=== PATIENT | male | born 1930 | race Caucasian/White ===

== ENCOUNTER → 2016-05-12 | Outpatient (CLI) | payer MEDICARE ==
[2016-05-12 10:49] LABS: HEMATOCRIT 40.5 % (37.9-51.0); HEMOGLOBIN 13.6 g/dL (13.5-17.0); HGB HCT DIFFERENCE 0.3; MEAN CORPUSCULAR HEMOGLOBIN 30.8 pg (27.0-33.4); MEAN CORPUSCULAR HGB CONC 33.7 g/dL (32.0-36.0); MEAN CORPUSCULAR VOLUME 91 fl (80-97); RED BLOOD COUNT 4.43 10^6/uL (4.35-5.55); RED CELL DISTRIBUTION WIDTH 13.9 % (11.5-14.0); WHITE BLOOD COUNT 4.5 10^3/uL (4.0-10.5)
[2016-05-12 11:14] LABS: ALANINE AMINOTRANSFERASE 16 U/L (21-72); ALBUMIN 4.3 g/dL (3.5-5.0); ALKALINE PHOSPHATASE 98 U/L (38-126); ANION GAP 14 (5-19); ASPARTATE AMINO TRANSFERASE 17 U/L (17-59); BILIRUBIN,TOTAL 0.4 mg/dL (0.2-1.3); BLOOD UREA NITROGEN 31 mg/dL (7-20); CALCIUM 9.9 mg/dL (8.4-10.2); CARBON DIOXIDE 27 mmol/L (22-30); CHLORIDE 99 mmol/L (98-107); CHOLESTEROL 157.79 mg/dL (0-200); CREATININE RESULT 1.14 mg/dL (0.52-1.25); Direct HDL 35 mg/dL (>40); GLUCOSE 98 mg/dL (75-110); POTASSIUM 5.4 mmol/L (3.6-5.0); SODIUM 140.4 mmol/L (137-145); TOTAL PROTEIN 7.3 g/dL (6.3-8.2); TRIGLYCERIDES 170 mg/dL (<150)
[2016-05-12 11:26] LABS: DIRECT LDL 86 mg/dL (<100)
== END ==
LOC: OD 09:32
PROVIDERS: ATTEND Family Medicine
DX: R78.89 Finding of other specified substances, not normally found in blood (principal); R94.6 Abnormal results of thyroid function studies; E78.9 Disorder of lipoprotein metabolism, unspecified; E55.9 Vitamin D deficiency, unspecified
CPT/HCPCS: 36415; 80053; 80061; 82306; 84443; 85027

== ENCOUNTER → 2016-05-18 | Outpatient (CLI) | payer MEDICARE | LOC: OD 10:17 | PROVIDERS: ATTEND Family Medicine | DX: E87.5 Hyperkalemia (principal) | CPT/HCPCS: 36415; 84132 ==

== ENCOUNTER → 2016-07-25 | Outpatient (CLI) | payer MEDICARE | LOC: OD 10:13 | PROVIDERS: ATTEND Family Medicine | DX: E87.5 Hyperkalemia (principal) | CPT/HCPCS: 36415; 84132 ==

== ENCOUNTER → 2017-04-24 | Outpatient (CLI) | payer MEDICARE ==
[2017-04-24 11:16] LABS: HEMATOCRIT 38.1 % (37.9-51.0); HEMOGLOBIN 13.2 g/dL (13.5-17.0); HGB HCT DIFFERENCE 1.5; MEAN CORPUSCULAR HEMOGLOBIN 31.3 pg (27.0-33.4); MEAN CORPUSCULAR HGB CONC 34.7 g/dL (32.0-36.0); MEAN CORPUSCULAR VOLUME 90 fl (80-97); RED BLOOD COUNT 4.22 10^6/uL (4.35-5.55)
[2017-04-24 11:38] LABS: ALANINE AMINOTRANSFERASE 15 U/L (21-72); ALKALINE PHOSPHATASE 91 U/L (38-126); ANION GAP 14 (5-19); ASPARTATE AMINO TRANSFERASE 14 U/L (17-59); BILIRUBIN,DIRECT 0.2 mg/dL (0.0-0.4); BILIRUBIN,TOTAL 0.3 mg/dL (0.2-1.3); BLOOD UREA NITROGEN 20 mg/dL (7-20); CALCIUM 9.6 mg/dL (8.4-10.2); CARBON DIOXIDE 23 mmol/L (22-30); CHLORIDE 104 mmol/L (98-107); CHOLESTEROL 194.45 mg/dL (0-200); CREATININE RESULT 1.12 mg/dL (0.52-1.25); Direct HDL 39 mg/dL (>40); GLUCOSE 90 mg/dL (75-110); POTASSIUM 4.8 mmol/L (3.6-5.0); SODIUM 141.1 mmol/L (137-145); TRIGLYCERIDES 155 mg/dL (<150)
[2017-04-24 11:49] LABS: DIRECT LDL 115 mg/dL (<100)
== END ==
LOC: OD 09:53
PROVIDERS: ATTEND Family Medicine
DX: R78.89 Finding of other specified substances, not normally found in blood (principal); R94.6 Abnormal results of thyroid function studies; E78.9 Disorder of lipoprotein metabolism, unspecified; E55.9 Vitamin D deficiency, unspecified
CPT/HCPCS: 36415; 80053; 80061; 82306; 84443; 85027

== ENCOUNTER 2018-07-29 11:48 | Emergency (ER) | payer MEDICARE ==
[2018-07-29 13:03] LABS: ABSOLUTE LYMPHOCYTES (AUTO) 1.2 10^3/uL (0.5-4.7); ABSOLUTE MONOCYTES (AUTO) 0.4 10^3/uL (0.1-1.4); ABSOLUTE NEUT (AUTO) 3.1 10^3/uL (1.7-8.2); BASOPHILS % (AUTO) 0.3 % (0-2); EOSINOPHILS % (AUTO) 0.4 % (0-6); HEMATOCRIT 39.4 % (37.9-51.0); HEMOGLOBIN 13.6 g/dL (13.5-17.0); LYMPHOCYTES % (AUTO) 24.2 % (13-45); MEAN CORPUSCULAR HEMOGLOBIN 31.5 pg (27.0-33.4); MEAN CORPUSCULAR HGB CONC 34.5 g/dL (32.0-36.0); MEAN CORPUSCULAR VOLUME 91 fl (80-97); MONOCYTES % (AUTO) 9.2 % (3-13); PLATELET COUNT 168 10^3/uL (150-450); RED BLOOD COUNT 4.31 10^6/uL (4.35-5.55); RED CELL DISTRIBUTION WIDTH 14.6 % (11.5-14.0); SEGMENTED NEUTROPHILS % (AUTO) 65.9 % (42-78); TOTAL CELLS COUNTED % (AUTO) 100 %; WHITE BLOOD COUNT 4.8 10^3/uL (4.0-10.5)
[2018-07-29 13:28] LABS: ALANINE AMINOTRANSFERASE 10 U/L (21-72); ALKALINE PHOSPHATASE 88 U/L (38-126); ANION GAP 14 (5-19); ASPARTATE AMINO TRANSFERASE 16 U/L (17-59); BILIRUBIN,DIRECT 0.3 mg/dL (0.0-0.4); BILIRUBIN,TOTAL 0.5 mg/dL (0.2-1.3); BLOOD UREA NITROGEN 45 mg/dL (7-20); CALCIUM 10.2 mg/dL (8.4-10.2); CARBON DIOXIDE 24 mmol/L (22-30); CHLORIDE 99 mmol/L (98-107); GLUCOSE 107 mg/dL (75-110); POTASSIUM 5.3 mmol/L (3.6-5.0); SODIUM 137.1 mmol/L (137-145); TOTAL PROTEIN 7.6 g/dL (6.3-8.2)
--- NOTE | 2018-07-29 13:34 | RADIOLOGY REPORT (SQ) ---
EXAM DESCRIPTION: CHEST SINGLE VIEW COMPLETED DATE/TIME: 07/29/2018 1:25 pm REASON FOR STUDY: altered mental status COMPARISON: 06/03/2015 EXAM PARAMETERS: NUMBER OF VIEWS: One view. TECHNIQUE: Single frontal radiographic view of the chest acquired. RADIATION DOSE: NA LIMITATIONS: None. FINDINGS: LUNGS AND PLEURA: Unchanged right basilar atelectasis or scarring. No new airspace opacit y. MEDIASTINUM AND HILAR STRUCTURES: No masses. Contour normal. HEART AND VASCULAR STRUCTURES: Redemonstrated cardiomegaly with enlargement of the mediastinum, possi dulce due to aortic aneurysm. BONES: No acute findings. HARDWARE: None in the chest. OTHER: No other significant finding. IMPRESSION: 1. Unchanged right basilar atelectasis or scarring. No new airspace opacity. 2. Redemonstrated cardiomegaly with enlargement of the mediastinum, possibly due to aortic aneurysm, unchanged from prior. TECHNICAL DOCUMENTATION: JOB ID: [id number] [employer]- All Rights Reserved Reading location - IP/workstation name: [email or web address]
[2018-07-29 14:39] LABS: APPEARANCE,URINE SLIGHTLY-CLOUDY; COLOR,URINE YELLOW
[2018-07-29 14:40] LABS: BILIRUBIN,URINE NEGATIVE (NEGATIVE); GLUCOSE, URINE NEGATIVE (NEGATIVE); KETONES,URINE NEGATIVE (NEGATIVE); LEUKOCYTE ESTERASE,URINE MODERATE (NEGATIVE); NITRITE,URINE POSITIVE (NEGATIVE); PROTEIN,URINE NEGATIVE (NEGATIVE); URINE SPECIFIC GRAVITY 1.019; UROBILINOGEN,URINE NEGATIVE mg/dL (<2.0)
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
[2018-07-29] MEDS ORDERED: CEFTRIAXONE 1 GM/D5W RTU 1 GM/50 ML RTUPB IV ONE (15:15)
[2018-07-29 16:55] VITALS: BP 116/99
--- NOTE | 2018-07-29 21:27 | EKG REPORT ---
SEVERITY:- ABNORMAL ECG - SINUS TACHYCARDIA LEFT ANTERIOR FASCICULAR BLOCK : Confirmed by: Nel Feldman MD 29-Jul-2018 21:26:49
== END 2018-07-29 17:05 | disposition home or self-care (01) ==
LOC: ER 11:48
DX: N39.0 Urinary tract infection, site not specified (principal); R31.9 Hematuria, unspecified; R10.9 Unspecified abdominal pain; F03.90 Unspecified dementia, unspecified severity, without behavioral disturbance, psychotic disturbance, mood disturbance, and anxiety; I10 Essential (primary) hypertension; Z88.8 Allergy status to other drugs, medicaments and biological substances
CPT/HCPCS: 93005; 99284; 36415; 87086; 85025; 87088; 80053; 81001; 87186; 71045; 93010; J0696

== ENCOUNTER 2019-02-24 13:36 | Emergency (ER) | payer MEDICARE ==
[2019-02-24] MEDS ORDERED: NORMAL SALINE 1000 ML 1,000 ML IV ONE (14:06)
[2019-02-24 14:25] LABS: ABSOLUTE LYMPHOCYTES (AUTO) 1.7 10^3/uL (0.5-4.7); ABSOLUTE MONOCYTES (AUTO) 0.5 10^3/uL (0.1-1.4); ABSOLUTE NEUT (AUTO) 3.5 10^3/uL (1.7-8.2); BASOPHILS % (AUTO) 0.3 % (0-2); EOSINOPHILS % (AUTO) 0.5 % (0-6); HEMATOCRIT 33.6 % (37.9-51.0); HEMOGLOBIN 11.7 g/dL (13.5-17.0); LYMPHOCYTES % (AUTO) 29.6 % (13-45); MEAN CORPUSCULAR HEMOGLOBIN 32.2 pg (27.0-33.4); MEAN CORPUSCULAR HGB CONC 34.9 g/dL (32.0-36.0); MEAN CORPUSCULAR VOLUME 92 fl (80-97); MONOCYTES % (AUTO) 8.6 % (3-13); PLATELET COUNT 180 10^3/uL (150-450); RED BLOOD COUNT 3.64 10^6/uL (4.35-5.55); RED CELL DISTRIBUTION WIDTH 14.4 % (11.5-14.0); TOTAL CELLS COUNTED % (AUTO) 100 %; WHITE BLOOD COUNT 5.7 10^3/uL (4.0-10.5)
[2019-02-24 14:31] LABS: APPEARANCE,URINE SLIGHTLY-CLOUDY; BILIRUBIN,URINE NEGATIVE (NEGATIVE); COLOR,URINE YELLOW; GLUCOSE, URINE NEGATIVE (NEGATIVE); KETONES,URINE NEGATIVE (NEGATIVE); PROTEIN,URINE NEGATIVE (NEGATIVE); URINE SPECIFIC GRAVITY 1.012; UROBILINOGEN,URINE NEGATIVE mg/dL (<2.0)
--- NOTE | 2019-02-24 14:45 | RADIOLOGY REPORT (SQ) ---
EXAM DESCRIPTION: CHEST SINGLE VIEW COMPLETED DATE/TIME: 02/24/2019 2:34 pm REASON FOR STUDY: weak/cough COMPARISON: 07/29/2018. EXAM PARAMETERS: NUMBER OF VIEWS: One view. TECHNIQUE: Single frontal radiographic view of the chest acquired. RADIATION DOSE: NA LIMITATIONS: None. FINDINGS: LUNGS AND PLEURA: Retrocardiac left lower lobe airspace disease. MEDIASTINUM AND HILAR STRUCTURES: No masses. Contour normal. HEART AND VASCULAR STRUCTURES: Stable cardiomegaly. Ectatic cord dilated ascending thoracic aorta, u nchanged. BONES: No acute findings. HARDWARE: None in the chest. OTHER: No other significant finding. IMPRESSION: STABLE CARDIOMEGALY. LEFT LOWER LOBE ATELECTASIS VERSUS INFILTRATE. TECHNICAL DOCUMENTATION: JOB ID: [id number] [employer]- All Rights Reserved Reading location - IP/workstation name: [email or web address]
[2019-02-24 14:48] LABS: ALBUMIN 3.5 g/dL (3.5-5.0); ALKALINE PHOSPHATASE 89 U/L (38-126); ANION GAP 12 (5-19); ASPARTATE AMINO TRANSFERASE 15 U/L (17-59); BILIRUBIN,DIRECT 0.2 mg/dL (0.0-0.4); BILIRUBIN,TOTAL 0.3 mg/dL (0.2-1.3); BLOOD UREA NITROGEN 45 mg/dL (7-20); CALCIUM 10.1 mg/dL (8.4-10.2); CARBON DIOXIDE 27 mmol/L (22-30); CHLORIDE 95 mmol/L (98-107); GLUCOSE 105 mg/dL (75-110); POTASSIUM 4.7 mmol/L (3.6-5.0); TOTAL PROTEIN 7.9 g/dL (6.3-8.2)
[2019-02-24 15:53] LABS: INTERNATIONAL RATION (INR) 1.18; PROTHROMBIN TIME 15.1 SEC (11.4-15.4)
[2019-02-24 15:58] LABS: VENOUS BLOOD BASE EXCESS -1.7 mmol/L; VENOUS BLOOD PCO2 34.1 mmHg (35-63); VENOUS BLOOD PH 7.43 (7.30-7.42)
--- NOTE | 2019-02-24 16:34 | PDOC CONSULTATION ---
Consultation Consult Date: 02/24/19 Provider Consulted: JOSÉ LUIS VARELA Consult reason:: atrial fibrillation History of Present Illness Admission Date/PCP: JUANITO CARDONA MD Patient complains of: No complaints History of Present Illness: ELAINE PAYNE is a 88 year old male With the following active problems 1. Dementia [place] 2. Systemic hypertension 82-year-old male who has dementia and resides in a detention. Patient is unable to relate any history whatsoever. History is as related by the formal partner who is a retired nurse. History is somewhat limited. Patient does not have much in the way of complaints. Documentation suggest that there was a left flank pain and change in mental status. Reportedly patient was found to be in atrial fibrillation with rapid ventricular rate and was mildly hypotensive in route to the emergency room. This apparently responded to an intravenous dose of diltiazem which slowed down the rate with improvement in blood pressure. Since arrival to the hospital patient is converted to sinus rhythm. He appears to be his usual self. He is normotensive and his heart rate is also normal. He does not endorse any complaints specifically there is no reported chest pain or dyspnea. Telemetry shows sinus rhythm. Past Medical History Cardiac Medical History: Reports: Myocardial Infarction, Hypertension - lisinopril Denies: Coronary Artery Disease Pulmonary Medical History: Denies: Asthma, Bronchitis, Chronic Obstructive Pulmonary Disease (COPD), [place], Tuberculosis Neurological Medical History: Denies: Seizures GI Medical History: Denies: Hepatitis Musculoskeltal Medical History: Denies: Arthritis Psychiatric Medical History: Reports: Bipolar Disorder Hematology: Denies: Anemia, Sickle Cell Disease Past Surgical History Past Surgical History: Denies: Pacemaker Social History Smoking Status: Never Smoker Electronic Cigarette use?: No Frequency of Alcohol Use: None Hx Recreational Drug Use: No Hx Prescription Drug Abuse: No Family History Family History: Reviewed & Not Pertinent, Other - unavailable due to dementia Parental Family History Reviewed: No - Unable to obtain. Patient demented Children Family History Reviewed: NA Sibling(s) Family History Reviewed.: NA Medication/Allergy Home Medications: Levothyroxine Sodium [Synthroid] 25 mcg PO DAILY 06/03/15 Lisinopril 20 mg PO DAILY 06/03/15 Mirtazapine [Remeron] 15 mg PO HSP 06/03/15 Risperidone 2 ml PO DAILY 06/03/15 Cefdinir [Omnicef 300 mg Capsule] 1 cap PO BID #10 capsule 06/04/15 Lorazepam [Ativan 1 mg Tablet] 0.5 tab PO BID #0 06/04/15 Lorazepam [Ativan] 0.5 mg PO Q6 PRN #0 06/04/15 Cephalexin [Cephalexin 500 MG Tablet] 1 tab PO BID #14 tablet 07/29/18 Allergies/Adverse Reactions: haloperidol [From Haldol] Allergy (Verified 06/27/13 10:04) haloperidol lactate [From Haldol] Allergy (Verified 06/27/13 10:04) Review of Systems Constitutional: PRESENT: as per HPI Eyes: PRESENT: as per HPI Ears: PRESENT: as per HPI Nose, Mouth, and Throat: PRESENT: as per HPI Cardiovascular: PRESENT: as per HPI - Limited review of systems. Patient unable to relate much in terms of complaints. Apparently he was a bit altered in route to the emergency room. Now at baseline. No reported chest pain or dyspnea. Physical Exam Vital Signs: Temp Pulse Resp BP Pulse Ox 97.4 F 26 H 119/79 95 02/24/19 13:37 02/24/19 16:01 02/24/19 16:01 02/24/19 15:41 Intake & Output 02/23/19 02/24/19 02/25/19 06:59 06:59 06:59 Intake Total 1000 Balance 1000 Weight 81.647 kg General appearance: PRESENT: no acute distress, cooperative, well-nourished Head exam: PRESENT: atraumatic, normocephalic Eye exam: PRESENT: EOMI Mouth exam: PRESENT: moist Neck exam: PRESENT: full ROM Respiratory exam: PRESENT: symmetrical, unlabored Cardiovascular exam: PRESENT: +S1, +S2 Vascular exam: PRESENT: normal capillary refill GI/Abdominal exam: PRESENT: soft Musculoskeletal exam: PRESENT: ambulatory, normal inspection Neurological exam: PRESENT: awake, oriented to person, other - Nonpurposeful lipsmacking movements noted. Psychiatric exam: PRESENT: appropriate affect Results Laboratory Results: 02/24/19 14:10 02/24/19 14:10 02/24/19 02/24/19 02/24/19 14:10 14:10 14:10 WBC 5.7 RBC 3.64 L Hgb 11.7 L Hct 33.6 L MCV 92 MCH 32.2 MCHC 34.9 RDW 14.4 H Plt Count 180 Seg Neutrophils % 61.0 VBG pH VBG pCO2 VBG HCO3 VBG Base Excess Sodium 134.3 L Potassium 4.7 Chloride 95 L Carbon Dioxide 27 Anion Gap 12 BUN 45 H Creatinine 1.42 H Est GFR ( Amer) 57 L Glucose 105 Lactic Acid 1.4 Calcium 10.1 Total Bilirubin 0.3 AST 15 L Alkaline Phosphatase 89 Total Protein 7.9 Albumin 3.5 Urine Color Urine Appearance Urine pH Ur Specific Christopher Urine Protein Urine Glucose (UA) Urine Ketones Urine Blood Urine RBC (Auto) 02/24/19 02/24/19 14:10 15:15 WBC RBC Hgb Hct MCV MCH MCHC RDW Plt Count Seg Neutrophils % VBG pH 7.43 H VBG pCO2 34.1 L VBG HCO3 22.0 VBG Base Excess -1.7 Sodium Potassium Chloride Carbon Dioxide Anion Gap BUN Creatinine Est GFR ( Amer) Glucose Lactic Acid Calcium Total Bilirubin AST Alkaline Phosphatase Total Protein Albumin Urine Color YELLOW Urine Appearance SLIGHTLY-CLOUDY Urine pH 5.0 Ur Specific Christopher 1.012 Urine Protein NEGATIVE Urine Glucose (UA) NEGATIVE Urine Ketones NEGATIVE Urine Blood NEGATIVE Urine RBC (Auto) 1 02/24/19 14:10 Troponin I 0.039 EKG Comments: Twelve-lead EKG 02/24/2019 Atrial fibrillation 111 bpm, left anterior fascicular block. Telemetry presently shows sinus rhythm at 72 bpm. Impressions: Chest X-Ray 02/24/19 14:05 IMPRESSION: STABLE CARDIOMEGALY. LEFT LOWER LOBE ATELECTASIS VERSUS INFILTRATE. Assessment & Plan - Diagnosis (1) Atrial fibrillation Qualifiers: Atrial fibrillation type: paroxysmal Qualified Code(s): I48.0 - Paroxysmal atrial fibrillation Is this a current diagnosis for this admission?: Yes Plan: Likely paroxysmal atrial fibrillation No obvious infection trigger noted. Suspicious pulmonary opacity although no toxicity or signs of ongoing infection. Given advanced age and systemic hypertension patient is at increased risk for stroke. I did detailed discussion with the spouse regarding systemic anticoagulation to prevent stroke. Given overall poor functional capacity and less effective dementia family member is not much in support of pursuing systemic anticoagulation. I recommended low-dose beta-naye such as metoprolol succinate 25 mg once a day to be given in the evening. This will audibly suppress triggers for atrial fibrillation and also help blunt the ventricular rate should he go into atrial fibrillation. This will potentially offset likely hypotension should he develop atrial fibrillation. Given overall functional status I would not embark on a cardiac work-up. - Notes Notes: Based on advanced age and overall limited functional capacity and inability to attribute symptoms to atrial fibrillation rate control strategy is preferred. Metoprolol succinate 25 mg to be given in the evening to minimize hypotension. If blood pressure drop is observed arguably we should pick a lower dose such as metoprolol tartrate 12.5 mg twice daily or even once daily. Hopefully this will benefit the patient by suppressing triggers for atrial fibrillation. Based on family wishes we have chosen not to pursue systemic anticoagulation.
--- NOTE | 2019-02-24 16:38 | ER Document Report ---
ED Cardiac - General Chief Complaint: Irregular Pulse Stated Complaint: IRREGULAR HEART BEAT Time Seen by Provider: 02/24/19 13:46 Primary Care Provider: JUANITO CARDONA MD [Primary Care Provider] - Follow up as needed Mode of Arrival: Medic Information source: Patient TRAVEL OUTSIDE OF THE [place] IN LAST 30 DAYS: Yes - HPI Notes: Patient is brought in by ambulance secondary to some low blood pressure and irregular heart rhythm. The half-way states that when they were doing rounds this morning they noticed the patient having irregular heartbeat and diagnosed with atrial fibrillation. They also noticed that his blood pressure was low and called the ambulance. Ambulance states that the patient was found with initial blood pressure in the 70s. Heart rate was approximate 150. They did treat this with Cardizem and brought him to the hospital. Patient has dementia and cannot give any significant history. However patient has not recently had any known fevers vomiting diarrhea cough or congestion. is in the room and is very helpful with history. She states he has never had a regular heartbeat before and otherwise has been having no significant acute issues recently. She states today she noticed that he appeared weak during the episode of atrial fibrillation. She states now he appears back to normal. Symptoms were moderate. They were constant. They have now resolved. Nothing made them worse that is known. It did appear to get better after the Cardizem. There is no no radiation of the symptoms. No known shortness of breath. - Related Data Allergies/Adverse Reactions: haloperidol [From Haldol] Allergy (Verified 06/27/13 10:04) haloperidol lactate [From Haldol] Allergy (Verified 06/27/13 10:04) Past Medical History - General Information source: Patient - Social History Smoking Status: Never Smoker Chew tobacco use (# tins/day): No Frequency of alcohol use: Occasional Drug Abuse: None Family History: Reviewed & Not Pertinent, Other - unavailable due to dementia Patient has suicidal ideation: No Patient has homicidal ideation: No - Past Medical History Cardiac Medical History: Reports: Hx Heart Attack, Hx Hypertension - lisinopril Denies: Hx Coronary Artery Disease Pulmonary Medical History: Denies: Hx Asthma, Hx Bronchitis, Hx COPD, Hx Pneumonia, Hx Tuberculosis Neurological Medical History: Denies: Hx Cerebrovascular Accident, Hx Seizures Renal/ Medical History: Denies: Hx Peritoneal Dialysis GI Medical History: Denies: Hx Hepatitis, Hx Ulcer Musculoskeletal Medical History: Denies Hx Arthritis Psychiatric Medical History: Reports: Hx Bipolar Disorder Infectious Medical History: Denies: Hx Hepatitis Past Surgical History: Denies: Hx Open Heart Surgery, Hx Pacemaker - Immunizations Hx Diphtheria, Pertussis, Tetanus Vaccination: Yes Review of Systems - Review of Systems -: Yes ROS unobtainable due to patient's medical condition - Review of symptoms is not obtainable due to patient's dementia Physical Exam - Vital signs Vitals: Temp Resp BP Pulse Ox 97.4 F 18 88/54 L 94 02/24/19 13:37 02/24/19 13:37 02/24/19 13:37 02/24/19 13:37 Interpretation: Hypotensive, Tachycardic - General General appearance: Appears well, Alert - HEENT Head: Normocephalic, Atraumatic Eyes: Normal Pupils: PERRL - Respiratory Respiratory status: No respiratory distress Chest status: Nontender Breath sounds: Normal Chest palpation: Normal - Cardiovascular Rhythm: Irregularly irregular Heart sounds: Normal auscultation Murmur: No - Abdominal Inspection: Normal Distension: No distension Bowel sounds: Normal Tenderness: Nontender Organomegaly: No organomegaly - Back Back: Normal, Nontender - Extremities General upper extremity: Normal inspection, Nontender, Normal color, Normal ROM, Normal temperature General lower extremity: Normal inspection, Nontender, Normal color, Normal ROM, Normal temperature, Normal weight bearing. No: Michael's sign - Neurological Orientation: Disoriented to time [place] Coma Scale Eye Opening: Spontaneous [place] Coma Scale Verbal: Confused [place] Coma Scale Motor: Obeys Commands [place] Coma Scale Total: 14 Speech: Normal Motor strength normal: LUE, RUE, LLE, RLE Sensory: Normal - Psychological Associated symptoms: Normal affect, Normal mood - Skin Skin Temperature: Warm Skin Moisture: Dry Skin Color: Normal Course - Re-evaluation Re-evalutation: 02/24/19 16:36 Patient was brought in for hypotension and new onset atrial fibrillation with rapid ventricular response. After dose of Cardizem patient's blood pressure on arrival was in the 90s systolic. His heart rate was proxy 110. He had no complaints or apparent symptoms. However patient is somewhat of a poor historian due to his dementia however he was smiling and pleasant and very interactive. While in the emergency department patient did spontaneously convert to a sinus rhythm with a blood pressure 125/81. He still has no s ignificant complaints or issues at this time. I did consult with Dr. Pena, the rim technician. He came and saw the patient in the emergency department. He discussed treatment with the family. They wish to not use anticoagulation at this time. They are okay with starting a low-dose beta-naye. In addition on x-ray patient has a questionable infiltrate, although I doubt it is infectious, I will treat with antibiotics in case it is an early infectious process. In discussion with Dr. Pena and family it was felt the patient would not benefit from further inpatient work-up given his age and chronic medical conditions. - Vital Signs Vital signs: Temp Pulse Resp BP Pulse Ox 97.4 F 26 H 119/79 95 02/24/19 13:37 02/24/19 16:01 02/24/19 16:01 02/24/19 15:41 - Laboratory Result Diagrams: 02/24/19 14:10 02/24/19 14:10 Laboratory results interpreted by me: 02/24/19 02/24/19 02/24/19 14:10 14:10 15:15 RBC 3.64 L Hgb 11.7 L Hct 33.6 L RDW 14.4 H VBG pH 7.43 H VBG pCO2 34.1 L Sodium 134.3 L Chloride 95 L BUN 45 H Creatinine 1.42 H Est GFR ( Amer) 57 L Est GFR (MDRD) Non-Af 47 L AST 15 L - Diagnostic Test Radiology reviewed: Image reviewed, Reports reviewed - EKG Interpretation by Me Rate: Tachycardia - 111 Rhythm: A.Fib Collins/QRS: LAHB/LAFB Critical Care Note - Critical Care Note Total time excluding time spent on procedures (mins): 50 Comments: Approximate 50 minutes of critical care time was spent on this patient. This included multiple reassessments. It included multiple discussions with consultants and family. It included review of labs and images. It included review of old records. Discharge - Discharge Clinical Impression: New onset atrial fibrillation Hypotension Qualifiers: Hypotension type: other hypotension type Qualified Code(s): I95.89 - Other hypotension Dementia Qualifiers: Dementia type: Alzheimer's disease Alzheimer's disease onset: late-onset Dementia behavioral disturbance: without behavioral disturbance Qualified Code(s): G30.1 - Alzheimer's disease with late onset; F02.80 - Dementia in other diseases classified elsewhere without behavioral disturbance Condition: Fair Disposition: HOME, SELF-CARE Instructions: Atrial Fibrillation ([facility]) Additional Instructions: Please call your family doctor as soon as possible to arrange for a reevaluation Prescriptions: Cefdinir 300 mg PO BID 7 Days #14 capsule Metoprolol Succinate [Toprol Xl 25 mg Tab.sr] 25 mg PO DAILY #30 tab.sr.24h Referrals: JUANITO CARDONA MD [Primary Care Provider] - Follow up as needed
[2019-02-24] MEDS ORDERED: METOPROLOL SUCCINATE 25 MG TAB.SR.24H PO ONE (16:47)
--- NOTE | 2019-02-24 16:56 | EKG REPORT ---
SEVERITY:- ABNORMAL ECG - ATRIAL FIBRILLATION, V-RATE [id number] LEFT ANTERIOR FASCICULAR BLOCK : Confirmed by: Nel Feldman MD 24-Feb-2019 16:55:50
[2019-02-24 17:11] VITALS: BP 124/81
== END 2019-02-24 17:13 | disposition home or self-care (01) ==
LOC: ER 13:36
DX: I48.91 Unspecified atrial fibrillation (principal); I95.9 Hypotension, unspecified; G30.9 Alzheimer's disease, unspecified; F02.80 Dementia in other diseases classified elsewhere, unspecified severity, without behavioral disturbance, psychotic disturbance, mood disturbance, and anxiety; I10 Essential (primary) hypertension; R00.0 Tachycardia, unspecified; I44.4 Left anterior fascicular block; I25.2 Old myocardial infarction; Z88.8 Allergy status to other drugs, medicaments and biological substances; Z95.1 Presence of aortocoronary bypass graft
CPT/HCPCS: 93005; 99291; 96360; 51702; 36415; 87040; 85025; 85610; 87077; 80053; 81001; 84484; 82803; 83605; 87150 ×26; 71045; 93010; J7030; A9270

== ENCOUNTER 2019-03-21 10:49 | Inpatient (IN) | payer MEDICARE ==
[2019-03-21] MEDS ORDERED: NORMAL SALINE 1000 ML 1,000 ML IV ONE (11:04)
--- NOTE | 2019-03-21 11:13 | ER Document Report ---
ED General - General Chief Complaint: S/S of Possible Stroke Stated Complaint: POSSIBLE STROKE Time Seen by Provider: 03/21/19 11:00 Primary Care Provider: JUANITO CARDONA MD [Primary Care Provider] - Follow up as needed TRAVEL OUTSIDE OF THE [place] IN LAST 30 DAYS: Yes - HPI Notes: 88-year-old male residential patient with history of dementia was getting his flu shot at the [facility] this morning when he suddenly seemed to have a staggering gait and appeared transiently confused. This lasted for about 15 minutes and it totally resolved by the time EMS arrived. EMS documented a blood sugar 105 and a systolic BP of 105 and did not observe any focal deficit. The patient is quiet and slow to respond at baseline per his caregivers and also has chronic involuntary movements of his mouth. He appears currently to be back at his baseline per his caretakers. Patient currently has no specific complaints here and denies pain and says he feels "okay". - Related Data Allergies/Adverse Reactions: haloperidol [From Haldol] Allergy (Verified 06/27/13 10:04) haloperidol lactate [From Haldol] Allergy (Verified 06/27/13 10:04) Past Medical History - General Information source: Patient Cannot obtain history due to: Dementia - Social History Smoking Status: Unknown if Ever Smoked Family History: Reviewed & Not Pertinent, Other - unavailable due to dementia - Past Medical History Cardiac Medical History: Reports: Hx Heart Attack, Hx Hypertension - lisinopril Denies: Hx Coronary Artery Disease Pulmonary Medical History: Denies: Hx Asthma, Hx Bronchitis, Hx COPD, Hx Pneumonia, Hx Tuberculosis Neurological Medical History: Denies: Hx Cerebrovascular Accident, Hx Seizures Renal/ Medical History: Denies: Hx Peritoneal Dialysis GI Medical History: Denies: Hx Hepatitis, Hx Ulcer Musculoskeletal Medical History: Denies Hx Arthritis Psychiatric Medical History: Reports: Hx Bipolar Disorder Infectious Medical History: Denies: Hx Hepatitis Past Surgical History: Denies: Hx Open Heart Surgery, Hx Pacemaker - Immunizations Hx Diphtheria, Pertussis, Tetanus Vaccination: Yes Review of Systems - Review of Systems Notes: Constitutional: Negative for fever. HENT: Negative for sore throat. Eyes: Negative for visual changes. Cardiovascular: Negative for chest pain. Respiratory: Negative for shortness of breath. Gastrointestinal: Negative for abdominal pain, vomiting or diarrhea. Genitourinary: Negative for dysuria. Musculoskeletal: Negative for back pain. Skin: Negative for rash. Neurological: Negative for headaches, weakness or numbness. 10 point ROS negative except as marked above and in HPI. Physical Exam - Vital signs Vitals: Temp 97.2 F 03/21/19 11:05 Notes: GENERAL: Elderly man with involuntary movements of face suggesting possible tardive dyskinesia appearing in no acute distress. SKIN: Decreased turgor and somewhat pale no rashes. HEAD: Normocephalic atraumatic. EYES: PERRLA. EOMI. Conjunctivae and sclerae clear. EARS: CANALS AND TMS CLEAR. NOSE: CLEAR. MOUTH: Tacky mucosa. Edentulous. No stridor or edema. No drooling. NECK: Supple. No masses or thyromegaly. No adenopathy. Carotids 2+ without bruits. No JVD. BACK: Symmetrical without tenderness. CHEST: Respirations unlabored. Breath sounds clear and symmetrical. HEART: Regular rhythm. No murmur gallop or rub. ABDOMEN: Soft nontender without masses, organomegaly or rebound. Bowel sounds normally active. No bruits. GENITALIA: Deferred. EXTREMITIES: Moderate degenerative changes in her phalangeal joints of both hands. No edema. No calf tenderness. Cap refill less than 2.0 seconds. Distal pulses are barely palpable all 4 extremities and symmetrical. NEUROLOGICAL: GCS 14. Patient is alert to person and place but not time. Speech is somewhat indistinct but baseline per caregivers and EMS crew.. Cranial nerves II through XII intact. Sensorimotor and cerebellar normal. Normal tone. Course - Re-evaluation Re-evalutation: 03/21/19 11:32 Mr. Chanel appears potentially septic I have drawn a lactate level and blood cultures and we are giving a 20 cc/kg normal saline IV bolus with [address] Replaced Covarrubias catheter and have a chest x-ray pending. Clinically I do not see an obvious source of sepsis. He is cool to touch and we are going to get a core temperature on him. In the meantime I am going go ahead and empirically treat him with a dose of vancomycin and Zosyn. - Vital Signs Vital signs: Temp Pulse Resp BP Pulse Ox 97.1 F 03/21/19 16:00 - Laboratory Result Diagrams: 03/21/19 11:10 03/21/19 14:50 Laboratory results interpreted by me: 03/21/19 03/21/19 03/21/19 11:10 11:10 14:50 WBC 3.5 L RBC 3.53 L Hgb 11.4 L Hct 33.2 L RDW 14.4 H Plt Count 121 L Carbonic Acid ABG pH ABG pCO2 ABG HCO3 ABG Total CO2 Potassium 5.3 H Carbon Dioxide 15 L Anion Gap 22 H BUN 85 H Creatinine 6.25 H Est GFR ( Amer) 10 L Est GFR (MDRD) Non-Af 9 L Lactic Acid 3.6 H Calcium 10.3 H AST 16 L Total Protein 8.4 H 03/21/19 16:45 WBC RBC Hgb Hct RDW Plt Count Carbonic Acid 1.01 L ABG pH 7.34 L ABG pCO2 33.7 L ABG HCO3 17.9 L ABG Total CO2 19.0 L Potassium Carbon Dioxide Anion Gap BUN Creatinine Est GFR ( Amer) Est GFR (MDRD) Non-Af Lactic Acid Calcium AST Total Protein Critical Care Note - Critical Care Note Total time excluding time spent on procedures (mins): 35 Comments: Sepsis protocol initiated and patient will receive empiric Zosyn and vancomycin for presumed sepsis of undetermined origin. Discharge - Discharge Clinical Impression: RACHELLE (acute kidney injury), Dehydration Pneumonia Qualifiers: Pneumonia type: due to unspecified organism Laterality: unspecified laterality Lung location: unspecified part of lung Qualified Code(s): J18.9 - Pneumonia, unspecified organism Disposition: ADMITTED INPATIENT Admitting Provider: Jarred (Hospitalist) Unit Admitted: IMCU Referrals: JUANITO CARDONA MD [Primary Care Provider] - Follow up as needed
[2019-03-21 11:25] LABS: ABSOLUTE LYMPHOCYTES (AUTO) 0.6 10^3/uL (0.5-4.7); ABSOLUTE MONOCYTES (AUTO) 0.2 10^3/uL (0.1-1.4); ABSOLUTE NEUT (AUTO) 2.6 10^3/uL (1.7-8.2); BASOPHILS % (AUTO) 0.6 % (0-2); HEMATOCRIT 33.2 % (37.9-51.0); HEMOGLOBIN 11.4 g/dL (13.5-17.0); LYMPHOCYTES % (AUTO) 17.8 % (13-45); MEAN CORPUSCULAR HEMOGLOBIN 32.3 pg (27.0-33.4); MEAN CORPUSCULAR HGB CONC 34.3 g/dL (32.0-36.0); MEAN CORPUSCULAR VOLUME 94 fl (80-97); MONOCYTES % (AUTO) 5.9 % (3-13); PLATELET COUNT 121 10^3/uL (150-450); RED BLOOD COUNT 3.53 10^6/uL (4.35-5.55); RED CELL DISTRIBUTION WIDTH 14.4 % (11.5-14.0); SEGMENTED NEUTROPHILS % (AUTO) 75.7 % (42-78); TOTAL CELLS COUNTED % (AUTO) 100 %; WHITE BLOOD COUNT 3.5 10^3/uL (4.0-10.5)
[2019-03-21] MEDS ORDERED: PIPERACILLIN/TAZOBACTAM 3.375 GM VIAL IV ONE (11:34)
--- NOTE | 2019-03-21 12:08 | RADIOLOGY REPORT (SQ) ---
EXAM DESCRIPTION: CHEST SINGLE VIEW COMPLETED DATE/TIME: 03/21/2019 11:56 am REASON FOR STUDY: hypotension COMPARISON: AP view of the chest from 02/24/2019 EXAM PARAMETERS: NUMBER OF VIEWS: One view. TECHNIQUE: Single frontal radiographic view of the chest acquired. RADIATION DOSE: NA LIMITATIONS: None. FINDINGS: LUNGS AND PLEURA: The costophrenic sulci are blunted there are strands of atelectasis in t he right base. The increased density in the left retrocardiac space could represent a combination of a hiatal hernia, atelectasis and the dilated thoracic aorta (refer to the CT from 04/20/2014), howev er a superimposed infection should be excluded based on clinical findings. MEDIASTINUM AND HILAR STRUCTURES: Stable mediastinal and hilar contours. HEART AND VASCULAR STRUCTURES: The cardiac silhouette is enlarged. The pulmonary vasculature is with in normal limits given the low inspiratory lung volumes. BONES: No acute findings. HARDWARE: None in the chest. OTHER: No other finding. IMPRESSION: Low inspiratory lung volumes, cardiomegaly and trace bilateral pleural effusions. As de scribed above, the increased density in the left retrocardiac space could represent a combination of the the hiatal hernia, atelectasis in the dilated thoracic aorta (refer to the CT from 04/20/2014, ho wever a superimposed infection should be excluded based on clinical findings. TECHNICAL DOCUMENTATION: JOB ID: [id number] [employer]- All Rights Reserved Reading location - IP/workstation name: [email or web address]
--- NOTE | 2019-03-21 12:19 | RADIOLOGY REPORT (SQ) ---
EXAM DESCRIPTION: CT HEAD WITHOUT COMPLETED DATE/TIME: 03/21/2019 12:03 pm REASON FOR STUDY: ams COMPARISON: 06/03/2015 TECHNIQUE: Axial images acquired through the brain without intravenous contrast. Images reviewed wi th bone, brain and subdural windows. Additional sagittal and coronal reconstructions were generated. Images stored on PACS. All CT scanners at this facility use dose modulation, iterative reconstruction, and/or weight based d osing when appropriate to reduce radiation dose to as low as reasonably achievable (ALARA). [facility]: Dose Right [facility]: CareDose [facility]: Dose Right [facility]: Teradose 4D [facility]: Smart Technologies RADIATION DOSE: CT Rad equipment meets quality standard of care and radiation dose reduction techniq ues were employed. CTDIvol: 53.2 mGy. DLP: 1017 mGy-cm. mGy. LIMITATIONS: None. FINDINGS: VENTRICLES: Prominent ventricles secondary to involutional atrophy. CEREBRUM: Cortical atrophy. No masses. No hemorrhage. No midline shift. No evidence for acute inf arction. Few scattered areas of low density in the white matter most likely chronic small vessel isch emic changes. CEREBELLUM: No masses. No hemorrhage. No alteration of density. No evidence for acute infarction. EXTRAAXIAL SPACES: No fluid collections. No masses. ORBITS AND GLOBE: No intra- or extraconal masses. Normal contour of globe without masses. CALVARIUM: No fracture. PARANASAL SINUSES: There is masslike opacification in the left sphenoid sinus. There are some calcif ications in this. SOFT TISSUES: No mass or hematoma. OTHER: No other significant finding. IMPRESSION: 1. Involutional changes with mild chronic microvascular ischemia. 2. Masslike opacification of the left sphenoid sinus. Possible mucocele. EVIDENCE OF ACUTE STROKE: NO. COMMENT: Quality ID # [id number]: Final reports with documentation of one or more dose reduction techniques (e.g., Automated exposure control, adjustment of the mA and/or kV according to patient size, use of iterative reconstruction technique) TECHNICAL DOCUMENTATION: JOB ID: [id number] [employer]- All Rights Reserved Reading location - IP/workstation name: [email or web address]
[2019-03-21 15:21] LABS: ALBUMIN 3.6 g/dL (3.5-5.0); ALKALINE PHOSPHATASE 60 U/L (38-126); ASPARTATE AMINO TRANSFERASE 16 U/L (17-59); BILIRUBIN,DIRECT 0.2 mg/dL (0.0-0.4); BILIRUBIN,TOTAL 0.5 mg/dL (0.2-1.3); BLOOD UREA NITROGEN 85 mg/dL (7-20); CALCIUM 10.3 mg/dL (8.4-10.2); GLUCOSE 104 mg/dL (75-110); POTASSIUM 5.3 mmol/L (3.6-5.0); TOTAL PROTEIN 8.4 g/dL (6.3-8.2)
[2019-03-21 15:26] LABS: CARBON DIOXIDE 15 mmol/L (22-30); CHLORIDE 106 mmol/L (98-107)
[2019-03-21 15:31] LABS: ANION GAP 22 (5-19)
[2019-03-21 16:55] LABS: ARTERIAL BLOOD BASE EXCESS -6.9 mmol/L; ARTERIAL BLOOD FIO2 ROOM AIR; ARTERIAL BLOOD H2CO3 1.01 mmol/L (1.05-1.35); ARTERIAL BLOOD HCO3 17.9 mmol/L (20-24); ARTERIAL BLOOD O2 SATURATION 96.8 % (94-98); ARTERIAL BLOOD PCO2 33.7 mmHg (35-45); ARTERIAL BLOOD PH 7.34 (7.35-7.45); ARTERIAL BLOOD PO2 92.9 mmHg (80-100)
[2019-03-21] MEDS ORDERED: DEXTROSE 5%-WATER 250 ML with NOREPINEPHRINE BITARTRATE 4 MG IV PRN ×2 (16:58)
[2019-03-21] MEDS ORDERED: NOREPINEPHRINE BITARTRATE INJ/PF 4 MG/4 ML SDV IV ONE (17:04)
[2019-03-21] MEDS ORDERED: ALBUMIN HUMAN 12.5 GM/50 ML RTUINJ IV ONE (17:54)
[2019-03-21] MEDS ORDERED: ACETAMINOPHEN 325 MG TABLET PO PRN (18:45)
[2019-03-21] MEDS ORDERED: MAG HYDROX/AL HYDROX/SIMETH SUSP 30 ML UDCUP PO PRN (18:45)
[2019-03-21] MEDS ORDERED: VANCOMYCIN HCL 0 MG in DEXTROSE 5%-WATER 250 ML IV NR (18:45)
[2019-03-21] MEDS ORDERED: ONDANSETRON HCL INJ/PF 4 MG/2 ML SDV IV PRN (18:45)
--- NOTE | 2019-03-21 18:56 | PDOC H&P ---
History of Present Illness Admission Date/PCP: JUANITO CARDONA MD History of Present Illness: ELAINE PAYNE is a 88 year old male past medical history of dementia, resident [facility] brought to ED by EMS after being noted to have confusion, imbalance, hypotensive. As per son who was present at the bed unfortunately does not have much information into the past medical history of the patient stating that patient has refused to eat or drink for the last 4 to 5 days. As far as patient himself he is awake, follows commands, unfortunately due to his dementia and hearing loss does not provide much information. In ED he was noted to be very hypotensive, with RACHELLE and elevated lactic acid. Patient was started on volume resuscitation, started on IV antibiotics, ICU consulted for admission however they did not deemed him appropriate for ICU admission. Hospitalist consulted for admission. Patient is awake, alert, oriented to self in no apparent distress, seems very weak and emaciated, when asked about why he has not been eating he does not provide much information. He denies any fever, chills, nausea, vomiting, diarrhea, constipation or any urinary symptoms. Past Medical History Cardiac Medical History: Reports: Myocardial Infarction, Hypertension - lisinopril Denies: Coronary Artery Disease Pulmonary Medical History: Denies: Asthma, Bronchitis, Chronic Obstructive Pulmonary Disease (COPD), Pneumonia, Tuberculosis Neurological Medical History: Denies: Seizures GI Medical History: Denies: Hepatitis Musculoskeltal Medical History: Denies: Arthritis Psychiatric Medical History: Reports: Bipolar Disorder Hematology: Denies: Anemia, Sickle Cell Disease Past Surgical History Past Surgical History: Denies: Pacemaker Social History Smoking Status: Unknown if Ever Smoked Frequency of Alcohol Use: None Hx Recreational Drug Use: No Hx Prescription Drug Abuse: No Family History Family History: Reviewed & Not Pertinent, Other - unavailable due to dementia Parental Family History Reviewed: Yes Children Family History Reviewed: Yes Sibling(s) Family History Reviewed.: Yes Medication/Allergy Home Medications: Levothyroxine Sodium [Synthroid] 25 mcg PO DAILY 06/03/15 Lisinopril 20 mg PO DAILY 06/03/15 Mirtazapine [Remeron] 15 mg PO HSP 06/03/15 Risperidone 2 ml PO DAILY 06/03/15 Cefdinir [Omnicef 300 mg Capsule] 1 cap PO BID #10 capsule 06/04/15 Lorazepam [Ativan 1 mg Tablet] 0.5 tab PO BID #0 06/04/15 Lorazepam [Ativan] 0.5 mg PO Q6 PRN #0 06/04/15 Cephalexin [Cephalexin 500 MG Tablet] 1 tab PO BID #14 tablet 07/29/18 Cefdinir 300 mg PO BID 7 Days #14 capsule 02/24/19 Metoprolol Succinate [Toprol Xl 25 mg Tab.sr] 25 mg PO DAILY #30 tab.sr.24h 02/24/19 Allergies/Adverse Reactions: haloperidol [From Haldol] Allergy (Verified 06/27/13 10:04) haloperidol lactate [From Haldol] Allergy (Verified 06/27/13 10:04) Review of Systems Review of Systems: hpi Physical Exam Vital Signs: Temp Pulse Resp BP Pulse Ox 97.1 F 03/21/19 16:00 Intake & Output 03/20/19 03/21/19 03/22/19 06:59 06:59 06:59 Intake Total 1023 Balance 1023 Weight 77.9 kg General appearance: PRESENT: no acute distress, thin, other - Pale and weak. Head exam: PRESENT: atraumatic, normocephalic Respiratory exam: PRESENT: clear to auscultation andrea. ABSENT: rales, rhonchi, wheezes Cardiovascular exam: PRESENT: RRR. ABSENT: diastolic murmur, rubs, systolic murmur Pulses: PRESENT: normal dorsalis pedis pul GI/Abdominal exam: PRESENT: normal bowel sounds, soft. ABSENT: distended, guarding, mass, organolmegaly, rebound, tenderness Neurological exam: PRESENT: alert, awake, oriented to person, CN II-XII grossly intact Skin exam: PRESENT: dry Results Laboratory Results: 03/21/19 11:10 03/21/19 14:50 03/21/19 03/21/19 03/21/19 11:10 11:10 11:10 WBC 3.5 L RBC 3.53 L Hgb 11.4 L Hct 33.2 L MCV 94 MCH 32.3 MCHC 34.3 RDW 14.4 H Plt Count 121 L Seg Neutrophils % 75.7 Carbonic Acid HCO3/H2CO3 Ratio ABG pH ABG pCO2 ABG pO2 ABG HCO3 ABG O2 Saturation ABG Base Excess FiO2 Sodium Cancelled Potassium Cancelled Chloride Cancelled Carbon Dioxide Cancelled Anion Gap Cancelled BUN Cancelled Creatinine Cancelled Est GFR ( Amer) Cancelled Est GFR (Non-Af Amer) Cancelled Glucose Cancelled Lactic Acid 3.6 H Calcium Cancelled Magnesium Cancelled Total Bilirubin Cancelled AST Cancelled Alkaline Phosphatase Cancelled Total Protein Cancelled Albumin Cancelled 03/21/19 03/21/19 03/21/19 12:09 14:50 15:34 WBC RBC Hgb Hct MCV MCH MCHC RDW Plt Count Seg Neutrophils % Carbonic Acid HCO3/H2CO3 Ratio ABG pH ABG pCO2 ABG pO2 ABG HCO3 ABG O2 Saturation ABG Base Excess FiO2 Sodium Cancelled 143.3 Potassium Cancelled 5.3 H Chloride Cancelled 106 Carbon Dioxide Cancelled 15 L Anion Gap Cancelled 22 H BUN Cancelled 85 H Creatinine Cancelled 6.25 H Est GFR ( Amer) Cancelled 10 L Est GFR (Non-Af Amer) Cancelled Glucose Cancelled 104 Lactic Acid 1.3 Calcium Cancelled 10.3 H Magnesium Cancelled 2.2 Total Bilirubin Cancelled 0.5 AST Cancelled 16 L Alkaline Phosphatase Cancelled 60 Total Protein Cancelled 8.4 H Albumin Cancelled 3.6 03/21/19 16:45 WBC RBC Hgb Hct MCV MCH MCHC RDW Plt Count Seg Neutrophils % Carbonic Acid 1.01 L HCO3/H2CO3 Ratio 17:1 ABG pH 7.34 L ABG pCO2 33.7 L ABG pO2 92.9 ABG HCO3 17.9 L ABG O2 Saturation 96.8 ABG Base Excess -6.9 FiO2 ROOM AIR Sodium Potassium Chloride Carbon Dioxide Anion Gap BUN Creatinine Est GFR ( Amer) Est GFR (Non-Af Amer) Glucose Lactic Acid Calcium Magnesium Total Bilirubin AST Alkaline Phosphatase Total Protein Albumin 03/21/19 03/21/19 11:10 15:34 Troponin I Cancelled 0.035 Impressions: Chest X-Ray 03/21/19 11:02 IMPRESSION: Low inspiratory lung volumes, cardiomegaly and trace bilateral pleural effusions. As described above, the increased density in the left retrocardiac space could represent a combination of the the hiatal hernia, atelectasis in the dilated thoracic aorta (refer to the CT from 04/20/2014, however a superimposed infection should be excluded based on clinical findings. Head CT 03/21/19 11:02 IMPRESSION: 1. Involutional changes with mild chronic microvascular ischemia. 2. Masslike opacification of the left sphenoid sinus. Possible mucocele. EVIDENCE OF ACUTE STROKE: NO. Assessment and Plan - Diagnosis (1) SIRS (systemic inflammatory response syndrome) Is this a current diagnosis for this admission?: Yes Plan: Due to underlying infectious process. Evidenced by fever, tachycardia, elevated lactic acid. Empiric IV antibiotics, cautious volume resuscitation guided by volume status. (2) Hyperkalemia Is this a current diagnosis for this admission?: Yes Plan: Due to RACHELLE. No acute EKG changes. Hyperkalemia protocol. (3) RACHELLE (acute kidney injury) Is this a current diagnosis for this admission?: Yes Plan: Likely due to too low p.o. intake. As per family patient has not been eating or drinking for the last 4 to 5 days. Cautious volume resuscitation guided by volume status, avoid nephrotoxic meds, strict in and out, nephrology consulted.
--- NOTE | 2019-03-21 19:03 | ADVANCED CARE ---
- Diagnosis (1) SIRS (systemic inflammatory response syndrome) Diagnosis Current: Yes (2) Hyperkalemia Diagnosis Current: Yes (3) RACHELLE (acute kidney injury) Diagnosis Current: Yes Resuscitation Status: Do Not Intubate Discussion: Patient has 2 kids, a son who is living in [place] and her daughter who is in [place]. Son who is accompanying patient does not know anything about a living will or patient's CODE STATUS. Patient's ex- Cindy was contacted who also said she does not remember if he has any living well POA. Patient himself is oriented to person and seems to comprehend some of my questions. When asked if he wants to be intubated he clearly says no. This was repeated by his son who also confirms that patient does not want to be intubated. Patient agrees with the plan. However when patient asked if he wants chest compressions he states he does. Patient's son was advised to talk to his family and and discuss patient's CODE STATUS when possible. Meanwhile patient agrees to have patient DNI at this point. Time Spent: 15
[2019-03-21] MEDS ORDERED: VANCOMYCIN HCL 1,500 MG in DEXTROSE 5%-WATER 250 ML IV ONE (20:30)
[2019-03-21] MEDS: NORMAL SALINE 1000 ML 1,000 ML IV PRN (20:57)
[2019-03-21] MEDS: SODIUM POLYSTYRENE SULFONATE 15 GM/60 ML PO SCH (21:13)
[2019-03-21] MEDS: HEPARIN SOD (PORCINE) 5,000 UNIT/ML 1 ML VIAL SUBCUT SCH (22:58)
[2019-03-21] MEDS: PIPERACILLIN SODIUM/TAZOBACTAM 2.25 GM in NORMAL SALINE 50 ML IV SCH (23:01)
[2019-03-22] MEDS ORDERED: DOPAMINE HCL/DEXTROSE 5%-WATER 800 MG/250 ML RTUINJ IV ONE (00:43)
[2019-03-22] MEDS ORDERED: DOPAMINE HCL 800 MG/D5W 250 ML IV PRN (01:10)
[2019-03-22] MEDS ORDERED: INFLUENZA QUAD (6MOS+) 2019-20 VAC 0.5 ML SYR IM ONE (01:13)
--- NOTE | 2019-03-22 03:27 | Progress Note ---
Provider Note Provider Note: Critical care note: 03/22/2019 Critical care start time: 01:06 Critical care issue: Hypotension, anuria I was asked by the patient's nurse to evaluate his persistent hypotension and anuria. On exam the patient's chest was found to be clear to auscultation. Heart showed a regular rate and rhythm without murmurs and there was no evidence of tachycardia or tachypnea. Patient's abdomen is soft bowel sounds were present but hypoactive. Extremities revealed no clubbing cyanosis or edema. Capillary refill time was 3-4 seconds. Patient's systolic blood pressures were noted to be in the high 70s to mid 80s with diastolic pressures in the high 40s to high 50s, MAP was in the 60-65 range. A brief discussion with patient and his family member who is in attendance. I also had a discussion with the patient's nurse and the floor nurse conditioning yard supervisor. The decision was made to try using renal dose dopamine per intravenous infusion in an effort to raise his blood pressure and better perfuse his kidneys. This endeavor was undertaken and I revisited the patient later to find his blood pressures in the high 80s to low 90s systolic, low 60s diastolic and MAPs in the range of 70. Patient had no urine output as yet but this will be observed on a continuous basis. The patient may well benefit from increased pressures would require transfer to the ICU in order to use an adjustable rate for any pressor agent. Continued surveillance of the patient's status is planned for the remainder of my shift. Critical care end time: 03:03 Total critical care time: 19 minutes
[2019-03-22 03:54] LABS: HEMATOCRIT 30.1 % (37.9-51.0); HEMOGLOBIN 10.2 g/dL (13.5-17.0); MEAN CORPUSCULAR HEMOGLOBIN 32.3 pg (27.0-33.4); MEAN CORPUSCULAR HGB CONC 33.9 g/dL (32.0-36.0); MEAN CORPUSCULAR VOLUME 95 fl (80-97); RED BLOOD COUNT 3.16 10^6/uL (4.35-5.55); RED CELL DISTRIBUTION WIDTH 14.7 % (11.5-14.0); WHITE BLOOD COUNT 4.1 10^3/uL (4.0-10.5)
[2019-03-22] MEDS ORDERED: MIRTAZAPINE 15 MG TABLET PO PRN ×2 (03:59→08:36)
[2019-03-22 04:21] LABS: PLATELET COUNT 96 10^3/uL (150-450)
[2019-03-22 04:24] LABS: ALBUMIN 3.6 g/dL (3.5-5.0); ALKALINE PHOSPHATASE 54 U/L (38-126); ASPARTATE AMINO TRANSFERASE 18 U/L (17-59); BILIRUBIN,DIRECT 0.3 mg/dL (0.0-0.4); BILIRUBIN,TOTAL 0.5 mg/dL (0.2-1.3); BLOOD UREA NITROGEN 89 mg/dL (7-20); CALCIUM 10.1 mg/dL (8.4-10.2); GLUCOSE 86 mg/dL (75-110); POTASSIUM 4.7 mmol/L (3.6-5.0); TOTAL PROTEIN 8.1 g/dL (6.3-8.2)
[2019-03-22 04:29] LABS: CARBON DIOXIDE 15 mmol/L (22-30); CHLORIDE 106 mmol/L (98-107)
[2019-03-22 04:46] LABS: ANION GAP 21 (5-19)
[2019-03-22 05:43] LABS: ABSOLUTE LYMPHOCYTES (AUTO) 1.1 10^3/uL (0.5-4.7); ABSOLUTE MONOCYTES (AUTO) 0.2 10^3/uL (0.1-1.4); ABSOLUTE NEUT (AUTO) 2.4 10^3/uL (1.7-8.2); BASOPHILS % (AUTO) 0.7 % (0-2); EOSINOPHILS % (AUTO) 0.1 % (0-6); HEMATOCRIT 29.4 % (37.9-51.0); HEMOGLOBIN 10.1 g/dL (13.5-17.0); LYMPHOCYTES % (AUTO) 29.2 % (13-45); MEAN CORPUSCULAR HEMOGLOBIN 32.5 pg (27.0-33.4); MEAN CORPUSCULAR HGB CONC 34.5 g/dL (32.0-36.0); MEAN CORPUSCULAR VOLUME 94 fl (80-97); MONOCYTES % (AUTO) 6.6 % (3-13); RED BLOOD COUNT 3.12 10^6/uL (4.35-5.55); RED CELL DISTRIBUTION WIDTH 14.9 % (11.5-14.0); SEGMENTED NEUTROPHILS % (AUTO) 63.4 % (42-78); TOTAL CELLS COUNTED % (AUTO) 100 %; WHITE BLOOD COUNT 3.8 10^3/uL (4.0-10.5)
[2019-03-22] MEDS: PIPERACILLIN SODIUM/TAZOBACTAM 2.25 GM in NORMAL SALINE 50 ML IV SCH ×3 (05:43→17:58)
[2019-03-22] MEDS: PANTOPRAZOLE SODIUM 40 MG TABLET.DR PO SCH ×2 (05:44→17:50)
[2019-03-22] MEDS: HEPARIN SOD (PORCINE) 5,000 UNIT/ML 1 ML VIAL SUBCUT SCH ×3 (05:45→22:50)
[2019-03-22] MEDS ORDERED: SODIUM BICARBONATE 8.4% INJ 50 MEQ/50 ML DISP.SYRIN ONE (05:48)
[2019-03-22] MEDS: SODIUM POLYSTYRENE SULFONATE 15 GM/60 ML PO SCH ×2 (05:50→17:36)
[2019-03-22] MEDS ORDERED: SODIUM BICARBONATE 8.4% INJ 50 MEQ/50 ML DISP.SYRIN IV ONE (05:50)
[2019-03-22] MEDS ORDERED: LEVOTHYROXINE SODIUM 0.025 MG TABLET PO SCH (06:00)
[2019-03-22 06:01] LABS: ALBUMIN 3.5 g/dL (3.5-5.0); BLOOD UREA NITROGEN 88 mg/dL (7-20); CALCIUM 10.1 mg/dL (8.4-10.2); GLUCOSE 89 mg/dL (75-110); PHOSPHORUS 7.4 mg/dL (2.5-4.5); POTASSIUM 4.7 mmol/L (3.6-5.0)
[2019-03-22 06:06] LABS: CARBON DIOXIDE 14 mmol/L (22-30); CHLORIDE 109 mmol/L (98-107)
[2019-03-22 06:07] LABS: ANION GAP 21 (5-19)
[2019-03-22 06:11] LABS: PLATELET COUNT 87 10^3/uL (150-450)
--- NOTE | 2019-03-22 09:34 | PDOC CRITICAL CARE PROG REPORT ---
General Date:: 03/22/19 ICU Day:: 1 Ventilator Day:: 0 Hospital Day:: 2 Events in the past 12 to 24 Hours:: Transferred to ICU and placed on dopamine. Review of systems relevant to events:: Indicates he is hungry, willing to drink Pepsi according to son. Wants to get up. Reason for ICU Addmission:: Hypotension, Acute Kidney Injury, electrolyte abnormality. - Medications: Vasopressors:: Dopamine. Sedation:: None Physical Exam Vital Signs: Temp Pulse Resp BP Pulse Ox 98.0 F 75 21 H 77/52 L 92 03/22/19 08:00 03/22/19 08:00 03/22/19 08:15 03/22/19 08:15 03/22/19 08:14 Intake & Output 03/21/19 03/22/19 03/23/19 06:59 06:59 06:59 Intake Total 1523 28 Output Total 0 Balance 1523 28 Weight 80.9 kg Weight/Height Weight 80.9 kg Height 5 ft 6 in General appearance: PRESENT: no acute distress, well-developed, well-nourished Head exam: PRESENT: atraumatic, normocephalic Eye exam: PRESENT: conjunctiva pink, EOMI, PERRLA. ABSENT: scleral icterus Ear exam: PRESENT: normal external ear exam Mouth exam: PRESENT: other - Mouth not dry today. Respiratory exam: PRESENT: clear to auscultation andrea. ABSENT: rales, rhonchi, wheezes Cardiovascular exam: PRESENT: RRR. ABSENT: diastolic murmur, rubs, systolic murmur Vascular exam: PRESENT: normal capillary refill GI/Abdominal exam: PRESENT: normal bowel sounds, soft. ABSENT: distended, guarding, mass, organolmegaly, rebound, tenderness Rectal exam: PRESENT: deferred Gentrourinary exam: PRESENT: indwelling catheter, other - Covarrubias placed this AM Extremities exam: PRESENT: full ROM. ABSENT: calf tenderness, clubbing, pedal edema Musculoskeletal exam: PRESENT: normal inspection Neurological exam: PRESENT: alert, altered, awake Psychiatric exam: PRESENT: other - C/W dementia. Skin exam: PRESENT: dry, intact, warm. ABSENT: cyanosis, rash Laboratory/Radiographs Laboratory Results: 03/22/19 05:34 03/22/19 05:34 03/21/19 03/21/1919 11:10 11:10 11:10 WBC 3.5 L RBC 3.53 L Hgb 11.4 L Hct 33.2 L MCV 94 MCH 32.3 MCHC 34.3 RDW 14.4 H Plt Count 121 L Seg Neutrophils % 75.7 Carbonic Acid HCO3/H2CO3 Ratio ABG pH ABG pCO2 ABG pO2 ABG HCO3 ABG O2 Saturation ABG Base Excess FiO2 Sodium Cancelled Potassium Cancelled Chloride Cancelled Carbon Dioxide Cancelled Anion Gap Cancelled BUN Cancelled Creatinine Cancelled Est GFR ( Amer) Cancelled Est GFR (Non-Af Amer) Cancelled Glucose Cancelled Lactic Acid 3.6 H Calcium Cancelled Phosphorus Magnesium Cancelled Total Bilirubin Cancelled AST Cancelled Alkaline Phosphatase Cancelled Total Protein Cancelled Albumin Cancelled [facility] 03/21/19 03/21/19 03/21/19 12:09 14:50 15:34 WBC RBC Hgb Hct MCV MCH MCHC RDW Plt Count Seg Neutrophils % Carbonic Acid HCO3/H2CO3 Ratio ABG pH ABG pCO2 ABG pO2 ABG HCO3 ABG O2 Saturation ABG Base Excess FiO2 Sodium Cancelled 143.3 Potassium Cancelled 5.3 H Chloride Cancelled 106 Carbon Dioxide Cancelled 15 L Anion Gap Cancelled 22 H BUN Cancelled 85 H Creatinine Cancelled 6.25 H Est GFR ( Amer) Cancelled 10 L Est GFR (Non-Af Amer) Cancelled Glucose Cancelled 104 Lactic Acid 1.3 Calcium Cancelled 10.3 H Phosphorus Magnesium Cancelled 2.2 Total Bilirubin Cancelled 0.5 AST Cancelled 16 L Alkaline Phosphatase Cancelled 60 Total Protein Cancelled 8.4 H Albumin Cancelled 3.6 [facility] 03/21/19 03/21/19 03/22/19 16:45 23:24 03:04 WBC 4.1 RBC 3.16 L Hgb 10.2 L Hct 30.1 L MCV 95 MCH 32.3 MCHC 33.9 RDW 14.7 H Plt Count 96 L Seg Neutrophils % Carbonic Acid 1.01 L HCO3/H2CO3 Ratio 17:1 ABG pH 7.34 L ABG pCO2 33.7 L ABG pO2 92.9 ABG HCO3 17.9 L ABG O2 Saturation 96.8 ABG Base Excess -6.9 FiO2 ROOM AIR Sodium Potassium Chloride Carbon Dioxide Anion Gap BUN Creatinine Est GFR ( Amer) Est GFR (Non-Af Amer) Glucose Lactic Acid 1.6 Calcium Phosphorus Magnesium Total Bilirubin AST Alkaline Phosphatase Total Protein Albumin TSH 03/22/19 03/22/19 03/22/19 03:04 03:04 05:34 WBC 3.8 L RBC 3.12 L Hgb 10.1 L Hct 29.4 L MCV 94 MCH 32.5 MCHC 34.5 RDW 14.9 H Plt Count 87 L Seg Neutrophils % 63.4 Carbonic Acid HCO3/H2CO3 Ratio ABG pH ABG pCO2 ABG pO2 ABG HCO3 ABG O2 Saturation ABG Base Excess FiO2 Sodium 141.9 Potassium 4.7 Chloride 106 Carbon Dioxide 15 L Anion Gap 21 H BUN 89 H Creatinine 6.19 H Est GFR ( Amer) 10 L Est GFR (Non-Af Amer) Glucose 86 Lactic Acid Calcium 10.1 Phosphorus Magnesium 2.1 Total Bilirubin 0.5 AST 18 Alkaline Phosphatase 54 Total Protein 8.1 Albumin 3.6 TSH 1.15 03/22/19 03/22/19 05:34 05:34 WBC RBC Hgb Hct MCV MCH MCHC RDW Plt Count Seg Neutrophils % Carbonic Acid HCO3/H2CO3 Ratio ABG pH ABG pCO2 ABG pO2 ABG HCO3 ABG O2 Saturation ABG Base Excess FiO2 Sodium 143.6 Potassium 4.7 Chloride 109 H Carbon Dioxide 14 L Anion Gap 21 H BUN 88 H Creatinine 5.97 H Est GFR ( Amer) 11 L Est GFR (Non-Af Amer) Glucose 89 Lactic Acid Calcium 10.1 Cancelled Phosphorus 7.4 H Magnesium 2.0 Total Bilirubin AST Alkaline Phosphatase Total Protein Albumin 3.5 TSH 03/21/19 03/21/19 03/21/19 11:10 15:34 15:34 Troponin I Cancelled 0.035 Cancelled NT-Pro-B Natriuret Pep 1960 H 03/21/19 03/22/19 21:39 03:04 Troponin I 0.035 0.031 NT-Pro-B Natriuret Pep Impressions: Chest X-Ray 03/21/19 11:02 IMPRESSION: Low inspiratory lung volumes, cardiomegaly and trace bilateral pleural effusions. As described above, the increased density in the left retrocardiac space could represent a combination of the the hiatal hernia, atelectasis in the dilated thoracic aorta (refer to the CT from 04/20/2014, however a superimposed infection should be excluded based on clinical findings. Head CT 03/21/19 11:02 IMPRESSION: 1. Involutional changes with mild chronic microvascular ischemia. 2. Masslike opacification of the left sphenoid sinus. Possible mucocele. EVIDENCE OF ACUTE STROKE: NO. All labs, radiographs, diagnostic studies and EKGs were personally reviewed: Yes In addition, reports of radiographic and diagnostic studies were read: Yes Assessment and Plan - Diagnosis (1) RACHELLE (acute kidney injury) Is this a current diagnosis for this admission?: Yes Plan: Only slightly improved. Watch fluids as he is not producing much. Should improve but the need for dialysis is still present. GFR after hydration only 11. (2) Dehydration Is this a current diagnosis for this admission?: Yes Plan: Mouth not as dry. Making progress with dehydration not so much with kidney function (3) Dementia Qualifiers: Dementia type: Alzheimer's disease Alzheimer's disease onset: late-onset Dementia behavioral disturbance: without behavioral disturbance Qualified Code(s): G30.1 - Alzheimer's disease with late onset; F02.80 - Dementia in other diseases classified elsewhere without behavioral disturbance Is this a current diagnosis for this admission?: Yes Plan: This condition is often seen with dementia in a [place] [facility] situation. This may be recurrent and the beginning of an end of life spiral. (4) Hypotension Qualifiers: Hypotension type: other hypotension type Qualified Code(s): I95.89 - Other hypotension Is this a current diagnosis for this admission?: Yes Plan: Due at least partially to dehydration, checking cortisol. Plan Summary: Continue voume load, cortisol if needed, wean dopamine respond to kidney function as events unfold. Critical Time Critical Time (minutes): 35 Level of Care: ICU Anticipated discharge: SNF Within: Other -: 1. The care of a critical patient is a dynamic process. This note is a liability claims representative synopsis but static in nature. The timeframe for treatments given in order is not necessary the actual time these treatments may have been done. 2. This patient requires critical care secondary to ongoing requirements for therapy not offered or safe outside the critical care environment. Transfer to a lower level of care with altered life or limb morbidity and mortality. 3. Multidisciplinary rounds completed. 4. ABCDE bundle addressed.
[2019-03-22] MEDS ORDERED: LORAZEPAM 1 MG TABLET PO SCH (10:00)
[2019-03-22] MEDS: RISPERIDONE 1 MG TABLET PO SCH (11:13)
[2019-03-22] MEDS: DOCUSATE SODIUM 100 MG CAPSULE PO SCH ×2 (11:14→11:36)
[2019-03-22] MEDS: LORAZEPAM 0.5 MG TABLET PO SCH ×2 (11:14→17:50)
[2019-03-22] MEDS: HYDROCORTISONE SOD SUCCINATE INJ/PF 100 MG/2 ML SDV IV SCH ×2 (14:28→17:51)
[2019-03-22] MEDS: NORMAL SALINE 1000 ML 1,000 ML IV PRN (18:02)
[2019-03-22 18:31] LABS: AMORPHOUS SEDIMENT,URINE TRACE /HPF; APPEARANCE,URINE CLOUDY; BILIRUBIN,URINE NEGATIVE (NEGATIVE); COLOR,URINE YELLOW; GLUCOSE, URINE 50 mg/dL (NEGATIVE); KETONES,URINE NEGATIVE (NEGATIVE); LEUKOCYTE ESTERASE,URINE SMALL (NEGATIVE); NITRITE,URINE NEGATIVE (NEGATIVE); PROTEIN,URINE NEGATIVE (NEGATIVE); URINE SPECIFIC GRAVITY 1.011; UROBILINOGEN,URINE NEGATIVE mg/dL (<2.0)
[2019-03-23] MEDS: PIPERACILLIN SODIUM/TAZOBACTAM 2.25 GM in NORMAL SALINE 50 ML IV SCH ×2 (00:42→07:03)
[2019-03-23] MEDS: HYDROCORTISONE SOD SUCCINATE INJ/PF 100 MG/2 ML SDV IV SCH ×3 (04:29→17:03)
[2019-03-23] MEDS: HEPARIN SOD (PORCINE) 5,000 UNIT/ML 1 ML VIAL SUBCUT SCH ×3 (07:04→22:49)
[2019-03-23] MEDS: PANTOPRAZOLE SODIUM 40 MG TABLET.DR PO SCH (07:04)
[2019-03-23] MEDS: LEVOTHYROXINE SODIUM 0.025 MG TABLET PO SCH (07:05)
--- NOTE | 2019-03-23 08:58 | PDOC CRITICAL CARE PROG REPORT ---
General Date:: 03/23/19 ICU Day:: 3 Hospital Day:: 3 Events in the past 12 to 24 Hours:: Off pressors, on steroids. Stability from a CV standpoint Review of systems relevant to events:: Kidney function improving. Neuro status stable. At risk of delirium. weak. Reason for ICU Addmission:: Hypotension, Acute Kidney Injury, electrolyte abnormality. - Medications: Medications reviewed and adjusted accordingly: Yes Vasopressors:: None since yesterday. Sedation:: None Physical Exam Vital Signs: Temp Pulse Resp BP Pulse Ox 97.5 F 74 24 H 130/83 H 99 03/23/19 08:00 03/23/19 08:00 03/23/19 08:01 03/23/19 08:00 03/23/19 08:01 Intake & Output 03/22/19 03/23/19 03/24/19 06:59 06:59 06:59 Intake Total 2573 216 Output Total 780 Balance 2573 -564 Weight 80.9 kg 81.3 kg Weight/Height Weight 81.3 kg Height 5 ft 6 in General appearance: PRESENT: no acute distress, hard of hearing Exam: Sleepy. Head exam: PRESENT: atraumatic, normocephalic Eye exam: PRESENT: conjunctiva pink, EOMI, PERRLA. ABSENT: scleral icterus Ear exam: PRESENT: normal external ear exam Mouth exam: PRESENT: moist, tongue midline Respiratory exam: PRESENT: clear to auscultation andrea. ABSENT: rales, rhonchi, wheezes Cardiovascular exam: PRESENT: RRR. ABSENT: diastolic murmur, rubs, systolic murmur Vascular exam: PRESENT: normal capillary refill GI/Abdominal exam: PRESENT: normal bowel sounds, soft. ABSENT: distended, guarding, mass, organolmegaly, rebound, tenderness Rectal exam: PRESENT: deferred Gentrourinary exam: PRESENT: indwelling catheter, other - No further hematuria Extremities exam: PRESENT: full ROM Musculoskeletal exam: PRESENT: full ROM Neurological exam: PRESENT: alert, altered, awake, oriented to person Skin exam: PRESENT: dry, intact, warm. ABSENT: cyanosis, rash Laboratory/Radiographs Laboratory Results: 03/22/19 05:34 03/22/19 05:34 03/22/19 18:15 Urine Color YELLOW Urine Appearance CLOUDY Urine pH 5.0 Ur Specific [place] 1.011 Urine Protein NEGATIVE Urine Glucose (UA) 50 H Urine Ketones NEGATIVE Urine Blood LARGE H Urine Nitrite NEGATIVE Ur Leukocyte Esterase SMALL H Urine WBC (Auto) 14 Urine RBC (Auto) 22 03/21/19 03/21/19 03/21/19 11:10 15:34 15:34 Troponin I Cancelled 0.035 Cancelled NT-Pro-B Natriuret Pep 1960 H 03/21/19 03/22/19 21:39 03:04 Troponin I 0.035 0.031 NT-Pro-B Natriuret Pep Impressions: Chest X-Ray 03/21/19 11:02 IMPRESSION: Low inspiratory lung volumes, cardiomegaly and trace bilateral pleural effusions. As described above, the increased density in the left retrocardiac space could represent a combination of the the hiatal hernia, atelectasis in the dilated thoracic aorta (refer to the CT from 04/20/2014, however a superimposed infection should be excluded based on clinical findings. Head CT 03/21/19 11:02 IMPRESSION: 1. Involutional changes with mild chronic microvascular ischemia. 2. Masslike opacification of the left sphenoid sinus. Possible mucocele. EVIDENCE OF ACUTE STROKE: NO. All labs, radiographs, diagnostic studies and EKGs were personally reviewed: Yes In addition, reports of radiographic and diagnostic studies were read: Yes Assessment and Plan - Diagnosis (1) RACHELLE (acute kidney injury) Is this a current diagnosis for this admission?: Yes (2) Dehydration Is this a current diagnosis for this admission?: Yes (3) Dementia Qualifiers: Dementia type: Alzheimer's disease Alzheimer's disease onset: late-onset Dementia behavioral disturbance: without behavioral disturbance Qualified Code(s): G30.1 - Alzheimer's disease with late onset; F02.80 - Dementia in other diseases classified elsewhere without behavioral disturbance Is this a current diagnosis for this admission?: Yes Plan: No change. He does not need an ICU level of care. He is at risk of delerium, sleep/wake cycle disruption and needs to be in regular room to allow kidney function to recover. (4) Hypotension Qualifiers: Hypotension type: other hypotension type Qualified Code(s): I95.89 - Other hypotension Is this a current diagnosis for this admission?: Yes Plan: Off dopamine. Hypoadrenal on hydrocortisone 50mg [id number]. Start wean tomorrow. Plan Summary: Covarrubias to eliminateany post renal obstructive concerns. Start steroid wean tomorrow. PT to mobilize. Critical Time Critical Time (minutes): 30 Level of Care: MEDICAL Anticipated discharge: SNF Within: within 48 hours -: 1. The care of a critical patient is a dynamic process. This note is a account executive sales representative synopsis but static in nature. The timeframe for treatments given in order is not necessary the actual time these treatments may have been done. 2. This patient requires critical care secondary to ongoing requirements for therapy not offered or safe outside the critical care environment. Transfer to a lower level of care with altered life or limb morbidity and mortality. 3. Multidisciplinary rounds completed. 4. ABCDE bundle addressed.
[2019-03-23] MEDS ORDERED: FAMOTIDINE 20 MG TABLET PO SCH (10:00)
[2019-03-23] MEDS: DOCUSATE SODIUM 100 MG CAPSULE PO SCH (10:42)
[2019-03-23] MEDS: LORAZEPAM 0.5 MG TABLET PO SCH ×2 (10:52→17:02)
[2019-03-23] MEDS: RISPERIDONE 1 MG TABLET PO SCH (10:53)
[2019-03-23] MEDS: IPRATROPIUM/ALBUTEROL 0.5-2.5 MG/3 ML AMPUL NEB PRN (15:21)
[2019-03-23] MEDS: NORMAL SALINE 1000 ML 1,000 ML IV PRN (16:49)
[2019-03-23] MEDS ORDERED: VANCOMYCIN HCL 750 MG in DEXTROSE 5%-WATER 250 ML IV SCH (22:00)
[2019-03-24] MEDS: HYDROCORTISONE SOD SUCCINATE INJ/PF 100 MG/2 ML SDV IV SCH ×3 (04:11→21:33)
[2019-03-24 05:15] LABS: BLOOD UREA NITROGEN 89 mg/dL (7-20); CARBON DIOXIDE 14 mmol/L (22-30); CHLORIDE 114 mmol/L (98-107); GLUCOSE 110 mg/dL (75-110); POTASSIUM 3.5 mmol/L (3.6-5.0)
[2019-03-24 05:40] LABS: ANION GAP 20 (5-19)
[2019-03-24] MEDS: LEVOTHYROXINE SODIUM 0.025 MG TABLET PO SCH (05:51)
[2019-03-24] MEDS: NORMAL SALINE 1000 ML 1,000 ML IV PRN (05:51)
[2019-03-24] MEDS: HEPARIN SOD (PORCINE) 5,000 UNIT/ML 1 ML VIAL SUBCUT SCH ×3 (05:51→21:33)
--- NOTE | 2019-03-24 08:42 | EKG REPORT ---
SEVERITY:- ABNORMAL ECG - SINUS TACHYCARDIA LEFT ANTERIOR FASCICULAR BLOCK : Confirmed by: Palomo Rebolledo MD 24-Mar-2019 08:41:48
[2019-03-24] MEDS ORDERED: ACETAMINOPHEN 325 MG TABLET PO PRN (10:30)
[2019-03-24] MEDS: DOCUSATE SODIUM 100 MG CAPSULE PO SCH (10:35)
[2019-03-24] MEDS: LORAZEPAM 0.5 MG TABLET PO SCH ×2 (10:35→17:49)
[2019-03-24] MEDS: RISPERIDONE 1 MG TABLET PO SCH (10:36)
[2019-03-24] MEDS: DEXTROSE 5%-1/2 NORMAL SALINE 1,000 ML IV PRN (12:19)
[2019-03-24] MEDS ORDERED: CEFTRIAXONE SODIUM 1,000 MG in DEXTROSE 5%-WATER 100 ML IV SCH (16:50)
--- NOTE | 2019-03-24 17:44 | PDOC CRITICAL CARE PROG REPORT ---
General Date:: 03/24/19 ICU Day:: 3 Ventilator Day:: 0 Hospital Day:: 4 Events in the past 12 to 24 Hours:: Patient's mental status continues to improve. He has been hemodynamically stable. Sodium levels are higher today however this may be as a result of Solu- Cortef therapy. Notably his cortisol level was 18 at the time of his change in status. Review of systems relevant to events:: Had a lengthy discussion with the patient's daughter, and the patient's state guardian. Apparently the family was somewhat estranged from the patient for a number of years especially after the divorce. It is just been recently that the daughter has been reintroduced into the patient's life. The guardian is Mrs. Gavino Sharpe, from [employer], phone number is [phone]. The daughter states that the patient's auditory acuity is depressed. He refuses to wear his hearing aids. He often refuses his medications at the nursing facility for which he resides. The daughter states he was transferred there b ecause he was unable to care for himself and was noncompliant with medications. He is at his baseline mental status according to daughter. His activities of daily living include ambulation and he can feed and wipe himself however needs help with bathing. He has restricted motion of the right shoulder for quite some time and it is difficult to move. No history of stroke. He has a long-standing history of alcohol use but none recently as far as anyone knows. He was noted to have blood in his Covarrubias originally but appears to be related to trauma. This has improved. He has refused physical therapy and occupational therapy here. Reason for ICU Addmission:: Hypotension, Acute Kidney Injury, electrolyte abnormality. - Medications: Medications reviewed and adjusted accordingly: Yes Vasopressors:: None. Weaned to off. Sedation:: None. Physical Exam Vital Signs: Temp Pulse Resp BP Pulse Ox 98.8 F 85 18 152/77 H 96 03/24/19 07:39 03/24/19 08:00 03/24/19 08:00 03/24/19 07:39 03/24/19 08:00 Intake & Output 03/23/19 03/24/19 03/25/19 06:59 06:59 06:59 Intake Total 216 1333 240 Output Total 780 345 20 Balance -564 988 220 Weight 81.3 kg 84.1 kg Weight/Height Weight 84.1 kg Height 5 ft 6 in General appearance: PRESENT: no acute distress, cooperative, disheveled, hard of hearing, well-developed, well-nourished. ABSENT: mild distress, severe distress Exam: Elderly nontoxic ill-appearing 88-year-old male no acute distress Head exam: PRESENT: atraumatic, normocephalic Eye exam: PRESENT: conjunctiva pink, EOMI, PERRLA. ABSENT: conjunctival injection, nystagmus, scleral icterus Ear exam: PRESENT: normal external ear exam Mouth exam: PRESENT: dry mucosa Teeth exam: PRESENT: edentulous Neck exam: ABSENT: carotid bruit, JVD, lymphadenopathy, thyromegaly, tracheal deviation Respiratory exam: PRESENT: clear to auscultation andrea, unlabored. ABSENT: accessory muscle use, tachypnea, wheezes Cardiovascular exam: PRESENT: RRR, +S1, +S2, systolic murmur - grade 3/6 Pulses: PRESENT: +2 pedal pulses bilateral Vascular exam: PRESENT: normal capillary refill GI/Abdominal exam: PRESENT: normal bowel sounds, soft. ABSENT: ascites, distended, firm, guarding, mass, Urbina's sign, organolmegaly, rebound, rigid, tenderness Rectal exam: PRESENT: deferred Gentrourinary exam: PRESENT: indwelling catheter Extremities exam: ABSENT: pedal edema, tenderness Musculoskeletal exam: ABSENT: deformity, dislocation Neurological exam: PRESENT: altered, awake, oriented to person, oriented to place, CN II-XII grossly intact, motor sensory deficit - Has decreased movement right arm--has strenght but restricted. Sensory intact. ABSENT: oriented to time, oriented to situation, aphasic Psychiatric exam: PRESENT: flat affect. ABSENT: agitated, anxious Focused psych exam: ABSENT: pressured speech, psychomotor agitation, restlessness Skin exam: PRESENT: dry, intact, normal color. ABSENT: abrasion, cyanosis, erythema, jaundice, mottled, pallor, petechiae, urticaria, vesicles Tubes/Lines: ABSENT: Endotracheal Tube, Chest Tube, Central Line, Arterial Catheter, Dialysis catheter - Covarrubias in place. Required secondary to urinary retention., Peg Tube, Nasogastic Tube, Other Laboratory/Radiographs Laboratory Results: 03/22/19 05:34 03/24/19 04:42 03/24/19 04:42 Sodium 147.9 H Potassium 3.5 L Chloride 114 H Carbon Dioxide 14 L Anion Gap 20 H BUN 89 H Creatinine 6.63 H Est GFR ( Amer) 10 L Glucose 110 Calcium 9.0 03/21/19 03/21/19 03/21/19 11:10 15:34 15:34 Troponin I Cancelled 0.035 Cancelled NT-Pro-B Natriuret Pep 1960 H 03/21/19 03/22/19 21:39 03:04 Troponin I 0.035 0.031 NT-Pro-B Natriuret Pep Impressions: Chest X-Ray 03/21/19 11:02 IMPRESSION: Low inspiratory lung volumes, cardiomegaly and trace bilateral pleural effusions. As described above, the increased density in the left retrocardiac space could represent a combination of the the hiatal hernia, atelectasis in the dilated thoracic aorta (refer to the CT from 04/20/2014, however a superimposed infection should be excluded based on clinical findings. Head CT 03/21/19 11:02 IMPRESSION: 1. Involutional changes with mild chronic microvascular ischemia. 2. Masslike opacification of the left sphenoid sinus. Possible mucocele. EVIDENCE OF ACUTE STROKE: NO. All labs, radiographs, diagnostic studies and EKGs were personally reviewed: Yes In addition, reports of radiographic and diagnostic studies were read: Yes Assessment and Plan - Diagnosis (1) Sepsis with encephalopathy and septic shock Qualifiers: Sepsis type: sepsis due to unspecified organism Qualified Code(s): A41.9 - Sepsis, unspecified organism; R65.21 - Severe sepsis with septic shock; G93.40 - Encephalopathy, unspecified Is this a current diagnosis for this admission?: Yes Plan: Improving (2) Lactic acidosis Is this a current diagnosis for this admission?: Yes Plan: Resolved (3) Sepsis associated hypotension Is this a current diagnosis for this admission?: Yes Plan: resolved (4) Acute on chronic renal failure Qualifiers: Acute renal failure type: unspecified Chronic kidney disease stage: stage 5, not on chronic dialysis Qualified Code(s): N17.9 - Acute kidney failure, unspecified; N18.5 - Chronic kidney disease, stage 5 Is this a current diagnosis for this admission?: Yes Plan: Partially related to dehydration (5) UTI (urinary tract infection) Qualifiers: Urinary tract infection type: site unspecified Hematuria presence: with hematuria Qualified Code(s): N39.0 - Urinary tract infection, site not specified; R31.9 - Hematuria, unspecified Is this a current diagnosis for this admission?: Yes Plan: Present on admission. (6) Adrenal insufficiency Is this a current diagnosis for this admission?: Yes Plan: mild, low dose steroid therapy (7) Acute urinary retention Is this a current diagnosis for this admission?: Yes Plan Summary: Patient's encephalopathy has improved as well his hypotension. We will continue supportive care. His renal failure appears to be a component of acute obstructive uropathy as well as dehydration. We have placed him on fluid replacement therapy. The nephrology service evaluated the patient. At this point he is not a candidate for renal replacement therapy for a number of reasons: 1. He appears dehydrated and ample time will need to be given to provide IV fluids. 2. Given his age and status with refusal of therapy he would not be a good candidate for psychosocial reasons, as far as long-term dialysis therapy. 3. His electrolyte and metabolic status is not significant I have asked for urine culture and repeat urine our urinalysis. His urinalysis on admission was positive and we need to determine if there is any bacterial invasion. Have started him on Rocephin. Patient has refused physical therapy and we have reordered. I spoken to his daughter and his family members about assisting with compliance. I have also discussed his case and care with his guardian, Mrs. Sharpe. In order for him to be fulfilled for DNR status we would need to assure a short and long-term prognosis. We will discuss further with patient and family. Continue supportive care. Follow his metabolic profile. Follow sodium. Reduce steroids today. Critical Time Critical Time (minutes): 50 Level of Care: ICU Anticipated discharge: SNF Within: within 48 hours -: 1. The care of a critical patient is a dynamic process. This note is a traveling sales representative synopsis but static in nature. The timeframe for treatments given in order is not necessary the actual time these treatments may have been done. 2. This patient requires critical care secondary to ongoing requirements for therapy not offered or safe outside the critical care environment. Transfer to a lower level of care with altered life or limb morbidity and mortality. 3. Multidisciplinary rounds completed. 4. ABCDE bundle addressed. 5. MPOA: Gavino Sharpe, Guardian, state: [phone]
[2019-03-24] MEDS: CEFTRIAXONE 1 GM/D5W RTU 1 GM/50 ML RTUPB IV SCH (17:49)
[2019-03-24] MEDS: FOLIC ACID 1 MG TABLET PO SCH (17:49)
[2019-03-24] MEDS: THIAMINE HCL 500 MG in NORMAL SALINE 250 ML IV SCH (18:06)
[2019-03-24 21:01] LABS: ARTERIAL BLOOD BASE EXCESS -9.2 mmol/L; ARTERIAL BLOOD H2CO3 0.84 mmol/L (1.05-1.35); ARTERIAL BLOOD HCO3 15.2 mmol/L (20-24); ARTERIAL BLOOD O2 SATURATION 97.5 % (94-98); ARTERIAL BLOOD PCO2 27.9 mmHg (35-45); ARTERIAL BLOOD PH 7.36 (7.35-7.45); ARTERIAL BLOOD PO2 101.2 mmHg (80-100); ARTERIAL BLOOD TOTAL CO2 16.1 mmol/L (23-27)
[2019-03-24 21:05] LABS: ARTERIAL BLOOD FIO2 2
--- NOTE | 2019-03-24 21:41 | PDOC CONSULTATION ---
Consultation Consult Date: 03/24/19 Provider Consulted: DENISE CHANEY Consult reason:: I was asked to see the patient due to acute kidney injury. History of Present Illness Admission Date/PCP: 03/21/19 18:50 JUANITO CARDONA MD History of Present Illness: ELAINE PAYNE is a 88 year old male with history of coronary artery disease, hypertension and possibly dementia who was admitted on March 11 from the shelter due to confusion, imbalance and hypotension. History is obtained from records as the patient cannot really give me a credible and reliable history at the moment. During that admission the son was the informant who stated the patient refused to eat and drink for about [address] Romero, the project asst was able to talk to the daughter who states that the patient has been refusing medications and therapy including physical and occupational therapy in the shelter as well. When I attempted to talk to the patient today I could not really understand his speech as it was garbled. The patient initially presented with hypotension 64. He also has elevated BUN of 85, creatinine of 6.25 with a EGFR of 9. Review of records revealed that previously the patient had a BUN of 45, creatinine of 1.4 with EGFR 41 few months ago this year. The patient was initially admitted in the floor but due to hypotension requiring pressor the patient was transferred to the ICU. He was initially on dopamine. He was also started on IV fluid hydration. His urine output is really not that great. During the first 24 hours he may 780 mL and yesterday it was only 345 mL with a Covarrubias catheter. His intake was about 4 L so far. Past Medical History Cardiac Medical History: Reports: Hypertension-primary, Myocardial Infarction Renal/ Medical History: Reports: Chronic Kidney Disease Stage III GI Medical History: Denies: Hepatitis Musculoskeltal Medical History: Denies: Arthritis Psychiatric Medical History: Reports: Bipolar Disorder Past Surgical History Past Surgical History: Reports: None Social History Information Source: [facility] Records Lives with: [facility] Smoking Status: Never Smoker Electronic Cigarette use?: No Frequency of Alcohol Use: None Hx Recreational Drug Use: No Hx Prescription Drug Abuse: No - Advance Directive Resuscitation Status: Full Code Surrogate healthcare decision maker:: Tania Sharpe of Adult Protective Services serves as his guardian patient access representative. Family History Family History: Reviewed & Not Pertinent Parental Family History Reviewed: Yes Children Family History Reviewed: Yes Sibling(s) Family History Reviewed.: Yes Medication/Allergy Home Medications: Levothyroxine Sodium [Synthroid] 25 mcg PO Q6AM 06/03/15 Lisinopril 20 mg PO DAILY 06/03/15 Mirtazapine [Remeron] 15 mg PO HSP PRN 06/03/15 Risperidone 2 mg PO DAILY 06/03/15 Lorazepam [Ativan 1 mg Tablet] 0.5 mg PO BID 03/21/19 Metoprolol Succinate [Toprol Xl 25 mg Tab.sr] 25 mg PO QHS 03/21/19 Allergies/Adverse Reactions: haloperidol [From Haldol] Allergy (Verified 06/27/13 10:04) haloperidol lactate [From Haldol] Allergy (Verified 06/27/13 10:04) Review of Systems ROS unobtainable: Due to mental status Physical Exam Vital Signs: Temp Pulse Resp BP Pulse Ox 98.8 F 85 18 152/77 H 96 03/24/19 07:39 03/24/19 08:00 03/24/19 08:00 03/24/19 07:39 03/24/19 08:00 Intake & Output 03/23/19 03/24/19 03/25/19 06:59 06:59 06:59 Intake Total 216 1333 240 Output Total 780 345 20 Balance -564 988 220 Weight 81.3 kg 84.1 kg Exam: General appearance: [no acute distress, fairly developed and fairly nourished, Head exam: PRESENT: atraumatic, normocephalic Eye exam: PRESENT: Conjunctiva slightly pale, EOMI, PERRLA. ABSENT: conjunctival injection, scleral icterus Mouth exam: PRESENT: moist, neck supple, tongue midline Neck exam: PRESENT: full ROM. ABSENT: carotid bruit, JVD, lymphadenopathy, thyromegaly Respiratory exam: PRESENT: Diminished to auscultation bilaterally. ABSENT: rales, rhonchi, stridor, wheezes Cardiovascular exam: PRESENT: IRRR, +S1, +S2. ABSENT: systolic murmur Pulses: PRESENT: normal radial pulses, normal dorsalis pedis pulses GI/Abdominal exam: PRESENT: normal bowel sounds, soft. ABSENT: guarding, mass, tenderness Rectal exam: Deferred Extremities exam: PRESENT: full ROM. ABSENT: calf tenderness, pedal edema Musculoskeletal: PRESENT: full ROM. ABSENT: deformity Neurological exam: PRESENT: alert, Awake, his speech is garbled and incomprehensible Psychiatric exam: PRESENT: appropriate affect, normal mood. Skin exam: PRESENT: intact, dry, warm. ABSENT: rash Results Laboratory Results: 03/22/19 05:34 03/24/19 04:42 03/24/19 04:42 Sodium 147.9 H Potassium 3.5 L Chloride 114 H Carbon Dioxide 14 L Anion Gap 20 H BUN 89 H Creatinine 6.63 H Est GFR ( Amer) 10 L Glucose 110 Calcium 9.0 03/21/19 03/21/19 03/21/19 11:10 15:34 15:34 Troponin I Cancelled 0.035 Cancelled NT-Pro-B Natriuret Pep 1960 H 03/21/19 03/22/19 21:39 03:04 Troponin I 0.035 0.031 NT-Pro-B Natriuret Pep Impressions: Chest X-Ray 03/21/19 11:02 IMPRESSION: Low inspiratory lung volumes, cardiomegaly and trace bilateral pleural effusions. As described above, the increased density in the left retrocardiac space could represent a combination of the the hiatal hernia, ate lectasis in the dilated thoracic aorta (refer to the CT from 04/20/2014, however a superimposed infection should be excluded based on clinical findings. Head CT 03/21/19 11:02 IMPRESSION: 1. Involutional changes with mild chronic microvascular ischemia. 2. Masslike opacification of the left sphenoid sinus. Possible mucocele. EVIDENCE OF ACUTE STROKE: NO. Assessment & Plan - Diagnosis (1) RACHELLE (acute kidney injury) Is this a current diagnosis for this admission?: Yes Plan: This most likely secondary to initial severe prerenal azotemia secondary to s evere dehydration due to poor oral intake. This is developing into an acute tubular necrosis. Patient is currently almost oliguric fluid hydration. Patient might have an underlying is at the baseline. I would continue the same cautious IV fluid hydration. Given the patient's comorbidities, advanced age, possible underlying dementia, history of refusal of treatment including medications and therapies the patient is not really a good candidate for any chronic renal replacement therapy. The threshold to do any acute renal replacement therapy would be high in his case, I would not really recommend it . I am not quite sure the patient would tolerate any form of renal replacement therapy. We will continue current medical management with careful IV fluid hydration. I called the patient's designated guardian patient access representative of Adult Protective Services, . Chai Sharpe and discussed the above recommendations. She states that she needs to discuss the patient's case with the state and family to give us a feedback to their desires with regards to plan of treatment and care. I also reminded her to discuss also the patient's CODE STATUS. Continue to monitor kidney function and electrolytes. Avoid nephrotoxic agents. Adjust medications accordingly. According to kidney function. (2) Dehydration Is this a current diagnosis for this admission?: Yes Plan: I will change the patient IV fluid to D5 half-normal at 125 mL an hour. (3) SIRS (systemic inflammatory response syndrome) Is this a current diagnosis for this admission?: Yes Plan: Managed by project asst. (4) Metabolic acidosis Is this a current diagnosis for this admission?: Yes Plan: This is due to acute kidney injury as well as IV fluid hydration. (5) Hypernatremia Is this a current diagnosis for this admission?: Yes Plan: Due to dehydration and sodium load. Change IV fluids as above. (6) Anemia Is this a current diagnosis for this admission?: Yes (7) UTI (urinary tract infection) Qualifiers: Urinary tract infection type: site unspecified Hematuria presence: with hematuria Qualified Code(s): N39.0 - Urinary tract infection, site not specified; R31.9 - Hematuria, unspecified Is this a current diagnosis for this admission?: Yes Plan: Urine cultures currently pending. (8) Atrial fibrillation Qualifiers: Atrial fibrillation type: paroxysmal Qualified Code(s): I48.0 - Paroxysmal atrial fibrillation - Notes Notes: As a stated above, I discussed recommendations with patient's guardian patient access representative Ms. Tania Sharpe. Also discussed the case with project asst, Dr. Pabon. Thank you very much for this consultation. I will follow the patient with you. - Time Time Spent: Greater than 70 Minutes
[2019-03-24 21:45] LABS: ANION GAP 17 (5-19); BLOOD UREA NITROGEN 89 mg/dL (7-20); CALCIUM 8.9 mg/dL (8.4-10.2); CARBON DIOXIDE 14 mmol/L (22-30); CHLORIDE 114 mmol/L (98-107); GLUCOSE 130 mg/dL (75-110); POTASSIUM 3.6 mmol/L (3.6-5.0)
[2019-03-25 05:45] LABS: ABSOLUTE LYMPHOCYTES (AUTO) 0.7 10^3/uL (0.5-4.7); ABSOLUTE MONOCYTES (AUTO) 0.2 10^3/uL (0.1-1.4); ABSOLUTE NEUT (AUTO) 2.4 10^3/uL (1.7-8.2); BASOPHILS % (AUTO) 0.2 % (0-2); HEMATOCRIT 23.9 % (37.9-51.0); HEMOGLOBIN 8.3 g/dL (13.5-17.0); LYMPHOCYTES % (AUTO) 21.2 % (13-45); MEAN CORPUSCULAR HEMOGLOBIN 32.5 pg (27.0-33.4); MEAN CORPUSCULAR HGB CONC 34.6 g/dL (32.0-36.0); MEAN CORPUSCULAR VOLUME 94 fl (80-97); MONOCYTES % (AUTO) 5.1 % (3-13); RED BLOOD COUNT 2.54 10^6/uL (4.35-5.55); RED CELL DISTRIBUTION WIDTH 15.2 % (11.5-14.0); SEGMENTED NEUTROPHILS % (AUTO) 73.5 % (42-78); TOTAL CELLS COUNTED % (AUTO) 100 %; WHITE BLOOD COUNT 3.3 10^3/uL (4.0-10.5)
[2019-03-25 06:04] LABS: PLATELET COUNT 62 10^3/uL (150-450)
[2019-03-25] MEDS: LEVOTHYROXINE SODIUM 0.025 MG TABLET PO SCH (06:04)
[2019-03-25] MEDS: HEPARIN SOD (PORCINE) 5,000 UNIT/ML 1 ML VIAL SUBCUT SCH (06:04)
[2019-03-25] MEDS: THIAMINE HCL 500 MG in NORMAL SALINE 250 ML IV SCH ×2 (06:05→18:32)
[2019-03-25 06:09] LABS: ANION GAP 16 (5-19); BLOOD UREA NITROGEN 87 mg/dL (7-20); CALCIUM 8.9 mg/dL (8.4-10.2); CARBON DIOXIDE 15 mmol/L (22-30); CHLORIDE 113 mmol/L (98-107); GLUCOSE 132 mg/dL (75-110); PHOSPHORUS 6.6 mg/dL (2.5-4.5); POTASSIUM 3.3 mmol/L (3.6-5.0)
--- NOTE | 2019-03-25 08:33 | RADIOLOGY REPORT (SQ) ---
EXAM DESCRIPTION: U/S RETROPERITON LTD COMPLETED DATE/TIME: 03/25/2019 4:28 am REASON FOR STUDY: renal failure COMPARISON: None. TECHNIQUE: Dynamic and static grayscale images acquired of the kidneys and bladder and recorded on P ACS. Additional selected color Doppler and spectral images recorded. LIMITATIONS: Limited visualization of the right kidney secondary to body habitus and patient positio sumi. FINDINGS: RIGHT KIDNEY: Unremarkable in size measuring 10.5 cm. Normal echogenicity. No solid o r suspicious masses. No hydronephrosis. No calcifications. LEFT KIDNEY: Unremarkable in size measuring 10.9 cm. Normal echogenicity. No solid or suspicious masses. No hydronephrosis. No calcifications. BLADDER: Decompressed with Covarrubias catheter. OTHER FINDINGS: No other significant finding. IMPRESSION: 1. Unremarkable renal ultrasound. No hydronephrosis. 2. Decompressed urinary bladder with a Covarrubias catheter. TECHNICAL DOCUMENTATION: JOB ID: [id number] [employer]- All Rights Reserved Reading location - IP/workstation name: [email or web address]
[2019-03-25] MEDS ORDERED: POTASSIUM CHLORIDE 10 MEQ CAPSULE.ER PO ONE (09:26)
--- NOTE | 2019-03-25 09:29 | PDOC PROGRESS REPORT ---
Subjective Progress Note for:: 03/25/19 Subjective:: Patient is more awake and alert today. Communication with him is limited because of his difficulty in hearing. He said he is slightly short of breath. He denies any chest pains. He is eating and just ate his breakfast. He tells me he wanted to go home today and go back to his [facility] in [place]. Reason For Visit: RACHELLE (ACUTE KIDNEY INJURY) DEHYDRATION PNEUMONIA Physical Exam Vital Signs: Temp Pulse Resp BP Pulse Ox 97.7 F 122 H 14 135/90 H 100 03/25/19 07:27 03/25/19 07:27 03/25/19 07:27 03/25/19 07:27 03/25/19 07:27 Intake & Output 03/24/19 03/25/19 03/26/19 06:59 06:59 06:59 Intake Total 1333 495 Output Total 345 545 Balance 988 -50 Weight 84.1 kg 87 kg Exam: General appearance: PRESENT: no acute distress, cooperative, with difficulty of hearing but answering questions appropriately Head exam: PRESENT: atraumatic, normocephalic Eye exam: PRESENT: conjunctiva pale, PERRLA. ABSENT: scleral icterus Neck exam: ABSENT: JVD Respiratory exam: PRESENT: Diminished breath sounds. ABSENT: crackles, rales, rhonchi, unlabored, wheezes Cardiovascular exam: PRESENT: Irregularly irregular rate rhythm -+S1, +S2. ABSENT: diastolic murmur, systolic murmur GI/Abdominal exam: PRESENT: normal bowel sounds, soft. ABSENT: guarding, mass, tenderness Extremities exam: ABSENT: No edema Neurological exam: PRESENT: alert, awake, oriented to person, place but not to time. Skin exam: PRESENT: dry, warm, Results Laboratory Results: 03/25/19 04:57 03/25/19 04:57 03/24/19 03/24/19 03/25/19 20:44 21:10 04:57 WBC RBC Hgb Hct MCV MCH MCHC RDW Plt Count Seg Neutrophils % Carbonic Acid 0.84 L HCO3/H2CO3 Ratio 18:1 ABG pH 7.36 ABG pCO2 27.9 L ABG pO2 101.2 H ABG HCO3 15.2 L ABG O2 Saturation 97.5 ABG Base Excess -9.2 FiO2 2 Sodium 145.0 144.2 Potassium 3.6 3.3 L Chloride 114 H 113 H Carbon Dioxide 14 L 15 L Anion Gap 17 16 BUN 89 H 87 H Creatinine 6.42 H 6.40 H Est GFR ( Amer) 10 L 10 L Glucose 130 H 132 H Lactic Acid Calcium 8.9 8.9 Phosphorus 6.6 H Magnesium 1.6 Ammonia 03/25/19 03/25/19 03/25/19 04:57 04:57 04:57 WBC 3.3 L RBC 2.54 L Hgb 8.3 L Hct 23.9 L MCV 94 MCH 32.5 MCHC 34.6 RDW 15.2 H Plt Count 62 L Seg Neutrophils % 73.5 Carbonic Acid HCO3/H2CO3 Ratio ABG pH ABG pCO2 ABG pO2 ABG HCO3 ABG O2 Saturation ABG Base Excess FiO2 Sodium Potassium Chloride Carbon Dioxide Anion Gap BUN Creatinine Est GFR ( Amer) Glucose Lactic Acid 0.8 Calcium Phosphorus Magnesium Ammonia 28.6 03/21/19 03/21/19 03/21/19 11:10 15:34 15:34 Troponin I Cancelled 0.035 Cancelled NT-Pro-B Natriuret Pep 1960 H 03/21/19 03/22/19 21:39 03:04 Troponin I 0.035 0.031 NT-Pro-B Natriuret Pep Impressions: Chest X-Ray 03/21/19 11:02 IMPRESSION: Low inspiratory lung volumes, cardiomegaly and trace bilateral pleural effusions. As described above, the increased density in the left retrocardiac space could represent a combination of the the hiatal hernia, atelectasis in the dilated thoracic aorta (refer to the CT from 04/20/2014, however a superimposed infection should be excluded based on clinical findings. Head CT 03/21/19 11:02 IMPRESSION: 1. Involutional changes with mild chronic microvascular ischemia. 2. Masslike opacification of the left sphenoid sinus. Possible mucocele. EVIDENCE OF ACUTE STROKE: NO. Renal Ultrasound 03/25/19 00:00 IMPRESSION: 1. Unremarkable renal ultrasound. No hydronephrosis. 2. Decompressed urinary bladder with a Covarrubias catheter. Assessment & Plan - Diagnosis (1) RACHELLE (acute kidney injury) Is this a current diagnosis for this admission?: Yes Plan: Likely secondary to initial prerenal azotemia that could have developed to some mild ATN. Patient is nonoliguric but urine output is minimal. He made about 545 mL of urine for the past 24 hours. Kidney function is virtually unchanged. Continue current management with cautious IV fluids. Renal ultrasound was unremarkable with normal size kidneys and no hydronephrosis. As I mentioned yesterday patient is not really a very good candidate for renal replacement therapy chronically due to his comorbidities. At this time there is no urgent indication for any acute renal replacement therapy. Awaiting decision of the patient's guardian regarding plan of care. (2) Dehydration Is this a current diagnosis for this admission?: Yes Plan: Seems to be improving clinically. Continue current IV fluid hydration. (3) SIRS (systemic inflammatory response syndrome) Is this a current diagnosis for this admission?: Yes (4) Metabolic acidosis Is this a current diagnosis for this admission?: Yes Plan: I will start oral sodium bicarbonate 650 mg twice daily. (5) Hypernatremia Is this a current diagnosis for this admission?: Yes Plan: Continue the same D5 half-normal saline for IV fluids for now. (6) Anemia Is this a current diagnosis for this admission?: Yes Plan: Worse today likely due to dilutional effect of IV fluids. (7) UTI (urinary tract infection) Qualifiers: Urinary tract infection type: site unspecified Hematuria presence: with hematuria Qualified Code(s): N39.0 - Urinary tract infection, site not specified; R31.9 - Hematuria, unspecified Is this a current diagnosis for this admission?: Yes Plan: Urine cultures so far negative. (8) Hypokalemia Is this a current diagnosis for this admission?: Yes Plan: Potassium replacement as necessary. (9) Hyperphosphatemia Is this a current diagnosis for this admission?: Yes Plan: Secondary to RACHELLE. Slowly improving with improvement of kidney function. (10) Atrial fibrillation Qualifiers: Atrial fibrillation type: paroxysmal Qualified Code(s): I48.0 - Paroxysmal atrial fibrillation Is this a current diagnosis for this admission?: Yes - Time Time with patient: 15-25 minutes
[2019-03-25] MEDS: HYDROCORTISONE SOD SUCCINATE INJ/PF 100 MG/2 ML SDV IV SCH ×2 (10:49→21:06)
[2019-03-25] MEDS: FOLIC ACID 1 MG TABLET PO SCH (10:50)
[2019-03-25] MEDS: RISPERIDONE 1 MG TABLET PO SCH (10:50)
[2019-03-25] MEDS: LORAZEPAM 0.5 MG TABLET PO SCH ×2 (10:50→17:32)
[2019-03-25] MEDS: SODIUM BICARBONATE 650 MG TABLET PO SCH ×2 (10:50→21:06)
[2019-03-25] MEDS: DOCUSATE SODIUM 100 MG CAPSULE PO SCH (12:50)
[2019-03-25] MEDS: IPRATROPIUM/ALBUTEROL 0.5-2.5 MG/3 ML AMPUL NEB PRN (12:56)
[2019-03-25] MEDS: DEXTROSE 5%-1/2 NORMAL SALINE 1,000 ML IV PRN (14:48)
--- NOTE | 2019-03-25 15:49 | PDOC CRITICAL CARE PROG REPORT ---
General Date:: 03/25/19 ICU Day:: 3 Ventilator Day:: 0 Hospital Day:: 4 Events in the past 12 to 24 Hours:: 03.25.19: Patient has been domiciled in the ICU without any worsening of his neurological status. We appreciate the assistance of the nephrology team. No hemodynamic instability has occurred. Patient denies any pain or shortness of breath. 03.24.19:Patient's mental status continues to improve. He has been hemodynamically stable. Sodium levels are higher today however this may be as a result of Solu-Cortef therapy. Notably his cortisol level was 18 at the time of his change in status. Review of systems relevant to events:: Had a lengthy discussion with the patient's daughter, and the patient's state guardian. Apparently the family was somewhat estranged from the patient for a number of years especially after the divorce. It is just been recently that the daughter has been reintroduced into the patient's life. The guardian is Mrs. Gavino Sharpe, from [employer], phone number is [phone]. The daughter states that the patient's auditory acuity is depressed. He refuses to wear his hearing aids. He often refuses his medications at the nursing facility for which he resides. The daughter states he was transferred there because he was unable to care for himself and was noncompliant with medications. He is at his baseline mental status according to daughter. His activities of daily living include ambulation and he can feed and wipe himself however needs help with bathing. He has restricted motion of the right shoulder for quite xiomara e time and it is difficult to move. No history of stroke. He has a long- standing history of alcohol use but none recently as far as anyone knows. He was noted to have blood in his Covarrubias originally but appears to be related to trauma. This has improved. He has refused physical therapy and occupational therapy here. Review of systems relevant to events:: Has had no arrhythmias. Covarrubias has been maintained to monitor accurate urine output. Although there has been urine output it has not been extensive. Reason for ICU Addmission:: Hypotension, Acute Kidney Injury, electrolyte abnormality. - Medications: Medications reviewed and adjusted accordingly: Yes Vasopressors:: None. Weaned to off. Sedation:: None. Physical Exam Vital Signs: Temp Pulse Resp BP Pulse Ox 97.7 F 122 H 14 135/90 H 100 03/25/19 07:27 03/25/19 07:27 03/25/19 07:27 03/25/19 07:27 03/25/19 07:27 Intake & Output 03/24/19 03/25/19 03/26/19 06:59 06:59 06:59 Intake Total 1333 495 Output Total 345 545 Balance 988 -50 Weight 84.1 kg 87 kg Weight/Height Weight 87 kg Height 5 ft 6 in General appearance: PRESENT: no acute distress, cooperative, hard of hearing, well-developed, well-nourished Exam: Nontoxic elderly chronically ill appearing 88-year-old male no active distress he is awake alert oriented to person and place. Difficulty with time without assistance. Head exam: PRESENT: atraumatic, normocephalic Eye exam: PRESENT: conjunctiva pink, EOMI, PERRLA. ABSENT: conjunctival injection, nystagmus, scleral icterus Mouth exam: PRESENT: dry mucosa Teeth exam: PRESENT: edentulous Respiratory exam: PRESENT: clear to auscultation andrea, unlabored. ABSENT: accessory muscle use, rales, rhonchi, tachypnea, wheezes Cardiovascular exam: PRESENT: RRR, +S1, +S2. ABSENT: rubs, systolic murmur, tachycardia Pulses: PRESENT: +2 pedal pulses bilateral Vascular exam: PRESENT: normal capillary refill GI/Abdominal exam: PRESENT: normal bowel sounds, soft. ABSENT: ascites, distended, firm, guarding, mass, organolmegaly, rebound, tenderness Gentrourinary exam: PRESENT: indwelling catheter Extremities exam: ABSENT: pedal edema, tenderness Musculoskeletal exam: PRESENT: normal inspection. ABSENT: deformity, dislocation Neurological exam: PRESENT: alert, awake, oriented to person, oriented to place, oriented to situation, CN II-XII grossly intact. ABSENT: oriented to time - Has weakness of right arm secondary to orthopedic/joint restriction, motor sensory deficit Psychiatric exam: PRESENT: appropriate affect Focused psych exam: ABSENT: psychomotor agitation, restlessness Skin exam: PRESENT: dry, intact, normal color, warm. ABSENT: cyanosis, mottled, pallor, rash, urticaria, vesicles Tubes/Lines: ABSENT: Endotracheal Tube, Chest Tube, Central Line, Arterial Ca theter, Dialysis catheter - Covarrubias catheter in place, Necessary for adequate output, Peg Tube, Nasogastic Tube, Other Laboratory/Radiographs Laboratory Results: 03/25/19 04:57 03/25/19 04:57 03/24/19 03/24/19 03/25/19 20:44 21:10 04:57 WBC RBC Hgb Hct MCV MCH MCHC RDW Plt Count Seg Neutrophils % Carbonic Acid 0.84 L HCO3/H2CO3 Ratio 18:1 ABG pH 7.36 ABG pCO2 27.9 L ABG pO2 101.2 H ABG HCO3 15.2 L ABG O2 Saturation 97.5 ABG Base Excess -9.2 FiO2 2 Sodium 145.0 144.2 Potassium 3.6 3.3 L Chloride 114 H 113 H Carbon Dioxide 14 L 15 L Anion Gap 17 16 BUN 89 H 87 H Creatinine 6.42 H 6.40 H Est GFR ( Amer) 10 L 10 L Glucose 130 H 132 H Lactic Acid Calcium 8.9 8.9 Phosphorus 6.6 H Magnesium 1.6 Ammonia 03/25/19 03/25/19 03/25/19 04:57 04:57 04:57 WBC 3.3 L RBC 2.54 L Hgb 8.3 L Hct 23.9 L MCV 94 MCH 32.5 MCHC 34.6 RDW 15.2 H Plt Count 62 L Seg Neutrophils % 73.5 Carbonic Acid HCO3/H2CO3 Ratio ABG pH ABG pCO2 ABG pO2 ABG HCO3 ABG O2 Saturation ABG Base Excess FiO2 Sodium Potassium Chloride Carbon Dioxide Anion Gap BUN Creatinine Est GFR ( Amer) Glucose Lactic Acid 0.8 Calcium Phosphorus Magnesium Ammonia 28.6 03/21/19 03/21/19 03/21/19 11:10 15:34 15:34 Troponin I Cancelled 0.035 Cancelled NT-Pro-B Natriuret Pep 1960 H 03/21/19 03/22/19 21:39 03:04 Troponin I 0.035 0.031 NT-Pro-B Natriuret Pep Impressions: Chest X-Ray 03/21/19 11:02 IMPRESSION: Low inspiratory lung volumes, cardiomegaly and trace bilateral pleural effusions. As described above, the increased density in the left retrocardiac space could represent a combination of the the hiatal hernia, atelectasis in the dilated thoracic aorta (refer to the CT from 04/20/2014, however a superimposed infection should be excluded based on clinical findings. Head CT 03/21/19 11:02 IMPRESSION: 1. Involutional changes with mild chronic microvascular ischemia. 2. Masslike opacification of the left sphenoid sinus. Possible mucocele. EVIDENCE OF ACUTE STROKE: NO. Renal Ultrasound 03/25/19 00:00 IMPRESSION: 1. Unremarkable renal ultrasound. No hydronephrosis. 2. Decompressed urinary bladder with a Covarrubias catheter. All labs, radiographs, diagnostic studies and EKGs were personally reviewed: Yes In addition, reports of radiographic and diagnostic studies were read: Yes Assessment and Plan - Diagnosis (1) Sepsis with encephalopathy and septic shock Qualifiers: Sepsis type: sepsis due to unspecified organism Qualified Code(s): A41.9 - Sepsis, unspecified organism; R65.21 - Severe sepsis with septic shock; G93.40 - Encephalopathy, unspecified Is this a current diagnosis for this admission?: Yes (2) Lactic acidosis Is this a current diagnosis for this admission?: Yes (3) Sepsis associated hypotension Is this a current diagnosis for this admission?: Yes (4) Acute on chronic renal failure Qualifiers: Acute renal failure type: unspecified Chronic kidney disease stage: stage 5, not on chronic dialysis Qualified Code(s): N17.9 - Acute kidney failure, unspecified; N18.5 - Chronic kidney disease, stage 5 Is this a current diagnosis for this admission?: Yes (5) UTI (urinary tract infection) Qualifiers: Urinary tract infection type: site unspecified Hematuria presence: with hematuria Qualified Code(s): N39.0 - Urinary tract infection, site not specified; R31.9 - Hematuria, unspecified Is this a current diagnosis for this admission?: Yes (6) Adrenal insufficiency Is this a current diagnosis for this admission?: Yes (7) Acute urinary retention Is this a current diagnosis for this admission?: Yes Plan Summary: 03.25.19: Patient's creatinine has not worsened. He endorsed to the renal service that he was slightly short of breath however he is not complaining of this to us. I spoke with the patient about the possible need of dialysis in the future. Though not necessary at this point inevitably it may become something for which he may need. In discussion regarding this the patient would not want to have dialysis. With the help of his ex- who is been at his bedside he again expressed that he would not want this. He is hard of hearing and we are hopeful that he completely understands this. This is a reasonable decision given his age his comorbidities and his inability to care for himself coupled to his refusal for medications and therapy. In addition to his wishes to not proceed the renal service would not offer this as a possibility given the tire fixer prognosis which would be poor and fraught with multiple complications. For now we will continue supportive care. Follow electrolytes. Keep Covarrubias catheter in place. Will attempt to have a family meeting regarding CODE STATUS however ultimately this decision would fall on the guardian Ms. Stanislav Sharpe. Her contact information: Cell phone [phone]; office phone: [phone]. 03.24.19:Patient's encephalopathy has improved as well his hypotension. We will continue supportive care. His renal failure appears to be a component of acute obstructive uropathy as well as dehydration. We have placed him on fluid replacement therapy. The nephrology service evaluated the patient. At this point he is not a ca ndidate for renal replacement therapy for a number of reasons: 1. He appears dehydrated and ample time will need to be given to provide IV fluids. 2. Given his age and status with refusal of therapy he would not be a good candidate for psychosocial reasons, as far as long-term dialysis therapy. 3. His electrolyte and metabolic status is not significant I have asked for urine culture and repeat urine our urinalysis. His urinalysis on admission was positive and we need to determine if there is any bacterial invasion. Have started him on Rocephin. Patient has refused physical therapy and we have reordered. I spoken to his daughter and his family members about assisting with compliance. I have also discussed his case and care with his guardian, Mrs. Sharpe. In order for him to be fulfilled for DNR status we would need to assure a short and long-term prognosis. We will discuss further with patient and family. Continue supportive care. Follow his metabolic profile. Follow sodium. Reduce steroids today. Critical Time Critical Time (minutes): 0 - 17730 Level of Care: MEDICAL Anticipated discharge: Acute Rehab Within: within 48 hours -: 1. The care of a critical patient is a dynamic process. This note is a employee relations representative synopsis but static in nature. The timeframe for treatments given in order is not necessary the actual time these treatments may have been done. 2. This patient requires critical care secondary to ongoing requirements for therapy not offered or safe outside the critical care environment. Transfer to a lower level of care with altered life or limb morbidity and mortality. 3. Multidisciplinary rounds completed. 4. ABCDE bundle addressed. 5. zoraida Gordonan
[2019-03-25] MEDS: CEFTRIAXONE 1 GM/D5W RTU 1 GM/50 ML RTUPB IV SCH (17:32)
[2019-03-25] MEDS: THIAMINE HCL 100 MG TABLET PO SCH (17:33)
[2019-03-25] MEDS ORDERED: THIAMINE HCL 500 MG in NORMAL SALINE 250 ML IV SCH (18:00)
[2019-03-25] MEDS ORDERED: FUROSEMIDE INJ/PF 40 MG/4 ML SDV IV ONE (19:30)
--- NOTE | 2019-03-25 21:17 | RADIOLOGY REPORT (SQ) ---
EXAM DESCRIPTION: CT HEAD WITHOUT IV CONTRAST COMPLETED DATE/TME: 03/25/2019 00:00 CLINICAL HISTORY: 88 years, Male, chnage in neuo status COMPARISON: Prior CT head from 03/21/2019. TECHNIQUE: Noncontrast CT of the head was performed. Coronal and sagittal reformations were created. Images stored on PACS. All CT scanners at this facility use dose modulation, iterative reconstruction, and/or weight based dosing when appropriate to reduce radiation dose to as low as reasonably achievable (ALARA). [facility]: Dose Right [facility]: CareDose [facility]: Dose Right [facility]: Teradose 4D [facility]: Stringbike LIMITATIONS: None. FINDINGS: Evaluation of the brain parenchyma reveals a small focus of hypodensity located about the right lentiform nucleus on image 19 of series 2, likely indicating a remote lacunar infarct. This is unchanged. Superimposed mild periventricular and patchy subcortical white matter low attenuation is noted. The ventricles and sulcal spaces are severely enlarged. No acute intracranial hemorrhage, mass effect, or extra-axial fluid is seen. Globes and orbits show no acute abnormality. There is complete opacification of left sphenoid cellule with associated peripheral hyperostosis as well as expansion of the left sphenoid cellule. This appears unchanged in configuration from the previous exam. Additional mucosal thickening is evident within the right sphenoid cellule. Right mastoid air cells are under aerated. Left mastoid air cells are clear. Calcifications are evident about the parasellar carotid arteries bilaterally. No depressed skull fractures. IMPRESSION: No acute intracranial abnormality. Mild chronic microvascular ischemic change with suspected remote lacunar infarct within the right lentiform nucleus. Underlying severe generalized atrophy. Complete opacification of the left sphenoid cellule with associated peripheral hyperostosis as well as remodeling of the left sphenoid sinus galdamez, suspicious for chronic sphenoid sinusitis or the presence of a mucocele. This appears unchanged from the previous exam dated 03/21/2019. TECHNICAL DOCUMENTATION: Quality ID # 436: Final reports with documentation of one or more dose reduction techniques (e.g., Automated exposure control, adjustment of the mA and/or kV according to patient size, use of iterative reconstruction technique) copyright 2011 [employer]- All Rights Reserved
[2019-03-26 04:51] LABS: ABSOLUTE LYMPHOCYTES (AUTO) 0.6 10^3/uL (0.5-4.7); ABSOLUTE MONOCYTES (AUTO) 0.2 10^3/uL (0.1-1.4); ABSOLUTE NEUT (AUTO) 2.2 10^3/uL (1.7-8.2); BASOPHILS % (AUTO) 0.4 % (0-2); HEMOGLOBIN 8.9 g/dL (13.5-17.0); LYMPHOCYTES % (AUTO) 19.6 % (13-45); MEAN CORPUSCULAR HEMOGLOBIN 32.4 pg (27.0-33.4); MEAN CORPUSCULAR HGB CONC 34.4 g/dL (32.0-36.0); MEAN CORPUSCULAR VOLUME 94 fl (80-97); MONOCYTES % (AUTO) 5.4 % (3-13); RED BLOOD COUNT 2.76 10^6/uL (4.35-5.55); RED CELL DISTRIBUTION WIDTH 15.4 % (11.5-14.0); SEGMENTED NEUTROPHILS % (AUTO) 74.6 % (42-78); TOTAL CELLS COUNTED % (AUTO) 100 %; WHITE BLOOD COUNT 2.9 10^3/uL (4.0-10.5)
[2019-03-26 05:05] LABS: ANION GAP 19 (5-19); BLOOD UREA NITROGEN 82 mg/dL (7-20); CALCIUM 9.2 mg/dL (8.4-10.2); CARBON DIOXIDE 15 mmol/L (22-30); CHLORIDE 113 mmol/L (98-107); GLUCOSE 119 mg/dL (75-110); PHOSPHORUS 6.5 mg/dL (2.5-4.5); POTASSIUM 3.8 mmol/L (3.6-5.0)
[2019-03-26 05:16] LABS: PLATELET COUNT 70 10^3/uL (150-450)
[2019-03-26] MEDS: THIAMINE HCL 500 MG in NORMAL SALINE 250 ML IV SCH (05:29)
[2019-03-26] MEDS: THIAMINE HCL 100 MG TABLET PO SCH ×2 (05:34→17:57)
[2019-03-26] MEDS: LEVOTHYROXINE SODIUM 0.025 MG TABLET PO SCH (05:34)
[2019-03-26] MEDS ORDERED: MAGNESIUM SULFATE PF/INJ 40 MEQ/10 ML SDV IV ONE (05:59)
[2019-03-26] MEDS: MAGNESIUM SULFATE 1 GM/D5W 100 ML IV SCH ×2 (06:16→07:25)
--- NOTE | 2019-03-26 09:18 | RADIOLOGY REPORT (SQ) ---
EXAM DESCRIPTION: CHEST SINGLE VIEW COMPLETED DATE/TIME: 03/26/2019 6:01 am REASON FOR STUDY: aspiration COMPARISON: AP view of the chest from 03/21/2019. EXAM PARAMETERS: NUMBER OF VIEWS: One view. TECHNIQUE: Single frontal radiographic view of the chest acquired. RADIATION DOSE: NA LIMITATIONS: None. FINDINGS: LUNGS AND PLEURA: The patient is rotated. The costophrenic sulci remain blunted and there are linear bibasilar opacities that could represent strands of atelectasis. As on the prior radiogr aph, the increased density in the left retrocardiac space could represent a combination of a hiatal h ernia, atelectasis and the dilated thoracic aorta. MEDIASTINUM AND HILAR STRUCTURES: Stable mediastinal and hilar contour. HEART AND VASCULAR STRUCTURES: Stable cardiac silhouette. BONES: No acute findings. HARDWARE: None in the chest. OTHER: Low inspiratory lung volumes. IMPRESSION: Rotated AP view of the chest with low inspiratory lung volumes. The radiographic appear ance of the chest is overall unchanged with bilateral pleural effusions and probable bibasilar atelec tasis. As noted on the prior report, the increased density in the left retrocardiac space could repr esent a combination of a hiatal hernia, atelectasis and the dilated thoracic aorta. TECHNICAL DOCUMENTATION: JOB ID: [id number] [employer]- All Rights Reserved Reading location - IP/workstation name: [email or web address]
--- NOTE | 2019-03-26 09:46 | PDOC PROGRESS REPORT ---
Subjective Progress Note for:: 03/26/19 Subjective:: Patient seems to be doing fine. He was eating his breakfast and his daughter, Colette is at bedside trying to feed him. He denies any shortness of breath or chest pains today. In fact he denies any complaints. Dr. Romero has spoken to him and his ex- yesterday regarding dialysis and the decision was he does not want dialysis at any time which is appropriate. So today I asked the patient again in the presence of his daughter Colette regarding his decision and he confirmed that he does not want dialysis. His daughter had questions regarding his kidney function and diet which I provided answers to. Patient and daughter is comfortable with the decision of no dialysis at this time. Reason For Visit: RACHELLE (ACUTE KIDNEY INJURY) DEHYDRATION PNEUMONIA Physical Exam Vital Signs: Temp Pulse Resp BP Pulse Ox 97.3 F 116 H 15 137/91 H 93 03/26/19 07:41 03/26/19 07:41 03/26/19 07:41 03/26/19 07:41 03/26/19 07:41 Intake & Output 03/25/19 03/26/19 03/27/19 06:59 06:59 06:59 Intake Total 1545 50 100 Output Total 545 1750 Balance 1000 -1700 100 Weight 87 kg 87 kg Exam: General appearance: PRESENT: no acute distress, cooperative, well-developed, well-nourished Head exam: PRESENT: atraumatic, normocephalic Eye exam: PRESENT: conjunctiva pale, PERRLA. ABSENT: scleral icterus Neck exam: ABSENT: JVD Respiratory exam: PRESENT: Diminished breath sounds. ABSENT: crackles, rales, rhonchi, unlabored, wheezes Cardiovascular exam: PRESENT: Irregularly irregular rate rhythm -+S1, +S2. ABSENT: diastolic murmur, systolic murmur GI/Abdominal exam: PRESENT: normal bowel sounds, soft. ABSENT: guarding, mass, tenderness Extremities exam: ABSENT: No edema Neurological exam: PRESENT: alert, awake, oriented to person, place but not to time. Skin exam: PRESENT: dry, warm, Results Laboratory Results: 03/26/19 03:58 03/26/19 03:58 03/26/19 03/26/19 03:58 03:58 WBC 2.9 L RBC 2.76 L Hgb 8.9 L Hct 26.0 L MCV 94 MCH 32.4 MCHC 34.4 RDW 15.4 H Plt Count 70 L Seg Neutrophils % 74.6 Sodium 146.8 H Potassium 3.8 Chloride 113 H Carbon Dioxide 15 L Anion Gap 19 BUN 82 H Creatinine 6.66 H Est GFR ( Amer) 10 L Glucose 119 H Calcium 9.2 Phosphorus 6.5 H Magnesium 1.4 L 03/24/19 16:59 Catheterized Urine Urine Culture - Final NO GROWTH 2 DAYS 03/21/19 03/21/19 03/21/19 11:10 15:34 15:34 Troponin I Cancelled 0.035 Cancelled NT-Pro-B Natriuret Pep 1960 H 03/21/19 03/22/19 21:39 03:04 Troponin I 0.035 0.031 NT-Pro-B Natriuret Pep Impressions: Head CT 03/25/19 00:00 IMPRESSION: No acute intracranial abnormality. Mild chronic microvascular ischemic change with suspected remote lacunar infarct within the right lentiform nucleus. Underlying severe generalized atrophy. Complete opacification of the left sphenoid cellule with associated peripheral hyperostosis as well as remodeling of the left sphenoid sinus galdamez, suspicious for chronic sphenoid sinusitis or the presence of a mucocele. This appears unchanged from the previous exam dated 03/21/2019. TECHNICAL DOCUMENTATION: Quality ID # 436: Final reports with documentation of one or more dose reduction techniques (e.g., Automated exposure control, adjustment of the mA and/or kV according to patient size, use of iterative reconstruction technique) copyright 2011 [employer]- All Rights Reserved Renal Ultrasound 03/25/19 00:00 IMPRESSION: 1. Unremarkable renal ultrasound. No hydronephrosis. 2. Decompressed urinary bladder with a Covarrubias catheter. Chest X-Ray 03/26/19 06:00 IMPRESSION: Rotated AP view of the chest with low inspiratory lung volumes. The radiographic appearance of the chest is overall unchanged with bilateral pleural effusions and probable bibasilar atelectasis. As noted on the prior report, the increased density in the left retrocardiac space could represent a combination of a hiatal hernia, atelectasis and the dilated thoracic aorta. Assessment & Plan - Diagnosis (1) RACHELLE (acute kidney injury) Is this a current diagnosis for this admission?: Yes Plan: Likely secondary to initial prerenal azotemia that could have developed to some mild ATN. Patient is nonoliguric with urine output of 1750 mL for the past 24 hours. Kidney function is virtually unchanged. IV fluids was discontinued by Dr. Romero. Renal ultrasound was unremarkable with normal size kidneys and no hydronephrosis. As I mentioned yesterday patient is not really a very good candidate for renal replacement therapy chronically due to his comorbidities. At this time there is no urgent indication for any acute renal replacement therapy. The patient in the presence of his daughter, Colette confirmed the decision that he does not want dialysis at any time which I think is appropriate as indicated above. At this time continue medical and supportive therapy. (2) Dehydration Is this a current diagnosis for this admission?: Yes Plan: Seems to be improving clinically. (3) SIRS (systemic inflammatory response syndrome) Is this a current diagnosis for this admission?: Yes (4) Metabolic acidosis Is this a current diagnosis for this admission?: Yes Plan: Continue sodium bicarbonate 650 mg twice daily. (5) Hypernatremia Is this a current diagnosis for this admission?: Yes Plan: IV fluids was discontinued. Encouraged patient to drink more water. (6) Anemia Is this a current diagnosis for this admission?: Yes Plan: Improved today. (7) UTI (urinary tract infection) Qualifiers: Urinary tract infection type: site unspecified Hematuria presence: with hematuria Qualified Code(s): N39.0 - Urinary tract infection, site not specified; R31.9 - Hematuria, unspecified Is this a current diagnosis for this admission?: Yes Plan: Urine cultures so far negative. (8) Hypokalemia Is this a current diagnosis for this admission?: Yes Plan: Resolved. (9) Hyperphosphatemia Is this a current diagnosis for this admission?: Yes Plan: Secondary to RACHELLE. Slowly improving with improvement of kidney function. Continue low phosphorus diet. Discussed this with patient and her daughter. (10) Atrial fibrillation Qualifiers: Atrial fibrillation type: paroxysmal Qualified Code(s): I48.0 - Paroxysmal atrial fibrillation Is this a current diagnosis for this admission?: Yes Plan: With intermittent RVR. - Notes Notes: Continue current medical and supportive treatment. Since the patient has a decided not to do any dialysis at any time I will sign off. Please call me if you have any questions or if I can be of further help in the future. - Time Time with patient: 15-25 minutes
[2019-03-26] MEDS ORDERED: RISPERIDONE 0.5 MG TAB.RAPDIS PO SCH (10:00)
[2019-03-26] MEDS: DOCUSATE SODIUM 100 MG CAPSULE PO SCH (10:52)
[2019-03-26] MEDS: SODIUM BICARBONATE 650 MG TABLET PO SCH ×2 (10:52→22:27)
[2019-03-26] MEDS: HYDROCORTISONE SOD SUCCINATE INJ/PF 100 MG/2 ML SDV IV SCH ×2 (10:52→22:27)
[2019-03-26] MEDS: FOLIC ACID 1 MG TABLET PO SCH (10:52)
--- NOTE | 2019-03-26 12:47 | PDOC CRITICAL CARE PROG REPORT ---
General Date:: 03/26/19 ICU Day:: 4 Ventilator Day:: 0 Hospital Day:: 5 Events in the past 12 to 24 Hours:: 03.26.19: Patient has increased heart rate and respiratory rate. Had CT of brain secondary to mental status changes. Discussion regarding dialysis occurred with both Nephrology and patient. No dialysis to be offered/accepted. 03.25.19: Patient has been domiciled in the ICU without any worsening of his neurological status. We appreciate the assistance of the nephrology team. No hemodynamic instability has occurred. Patient denies any pain or shortness of breath. 03.24.19:Patient's mental status continues to improve. He has been hemodynamically stable. Sodium levels are higher today however this may be as a result of Solu-Cortef therapy. Notably his cortisol level was 18 at the time of his change in status. Review of systems relevant to events:: Had a lengthy discussion with the patient's daughter, and the patient's state guardian. Apparently the family was somewhat estranged from the patient for a number of years especially after the divorce. It is just been recently that the daughter has been reintroduced into the patient's life. The guardian is Mrs. Gavino Sharpe, from [employer], phone number is [phone]. The daughter states that the patient's auditory acuity is depressed. He refuses to wear his hearing aids. He often refuses his medications at the nursing facility for which he resides. The daughter states he was transferred there because he was unable to care for himself and was noncompliant with medications. He is at his baseline mental status according to daughter. His activities of daily living include ambulation and he can feed and wipe himself however needs help with bathing. He has restricted motion of the right shoulder for quite some time and it is difficult to move. No history of stroke. He has a long- standing history of alcohol use but none recently as far as anyone knows. He was noted to have blood in his Covarrubias originally but appears to be related to trauma. This has improved. He has refused physical therapy and occupational therapy here. Review of systems relevant to events:: Has had no arrhythmias. Covarrubias has been maintained to monitor accurate urine output. Although there has been urine output it has not been extensive. Reason for ICU Addmission:: Hypotension, Acute Kidney Injury, electrolyte abnormality. - Medications: Medications reviewed and adjusted accordingly: Yes Vasopressors:: None. Weaned to off. Sedation:: None. Physical Exam Vital Signs: Temp Pulse Resp BP Pulse Ox 97.3 F 116 H 15 137/91 H 93 03/26/19 07:41 03/26/19 07:41 03/26/19 07:41 03/26/19 07:41 03/26/19 07:41 Intake & Output 03/25/19 03/26/19 03/27/19 06:59 06:59 06:59 Intake Total 1545 50 100 Output Total 545 1750 Balance 1000 -1700 100 Weight 87 kg 87 kg Weight/Height Weight 87 kg Height 5 ft 6 in General appearance: PRESENT: no acute distress, cooperative, well-developed, well-nourished. ABSENT: mild distress, severe distress Exam: Pleasant ill-appearing nontoxic 88-year-old male with slightly slurred garbled speech Head exam: PRESENT: atraumatic, normocephalic Eye exam: PRESENT: conjunctiva pink, EOMI, PERRLA. ABSENT: conjunctival injection, scleral icterus Mouth exam: PRESENT: moist, neck supple, tongue midline. ABSENT: dry mucosa Teeth exam: PRESENT: edentulous Neck exam: ABSENT: carotid bruit, JVD, lymphadenopathy, tenderness, thyromegaly, tracheal deviation Respiratory exam: PRESENT: rhonchi, unlabored. ABSENT: accessory muscle use, tachypnea, wheezes Cardiovascular exam: PRESENT: RRR, +S1, +S2, tachycardia Pulses: PRESENT: +2 pedal pulses bilateral Vascular exam: PRESENT: normal capillary refill GI/Abdominal exam: PRESENT: normal bowel sounds, soft. ABSENT: ascites, distended, guarding, mass, organolmegaly, rebound, tenderness Rectal exam: PRESENT: deferred Gentrourinary exam: PRESENT: indwelling catheter Extremities exam: ABSENT: pedal edema, tenderness Musculoskeletal exam: PRESENT: ambulatory. ABSENT: deformity, dislocation Neurological exam: PRESENT: awake, oriented to person, oriented to place, CN II- XII grossly intact. ABSENT: oriented to time, oriented to situation, motor sensory deficit - weak restricted right arm movement but at baseline. GCS: 15 Psychiatric exam: PRESENT: appropriate affect. ABSENT: anxious Focused psych exam: ABSENT: pressured speech, psychomotor agitation, restlessness Skin exam: PRESENT: dry, intact, normal color, warm. ABSENT: cyanosis, mottled, rash, urticaria, vesicles Tubes/Lines: ABSENT: Endotracheal Tube, Chest Tube, Central Line, Arterial Catheter, Dialysis catheter - Covarrubias present and intact. Required secondary to u rinary retention, Peg Tube, Nasogastic Tube, Other Laboratory/Radiographs Laboratory Results: 03/26/19 03:58 03/26/19 03:58 03/26/19 03/26/19 03:58 03:58 WBC 2.9 L RBC 2.76 L Hgb 8.9 L Hct 26.0 L MCV 94 MCH 32.4 MCHC 34.4 RDW 15.4 H Plt Count 70 L Seg Neutrophils % 74.6 Sodium 146.8 H Potassium 3.8 Chloride 113 H Carbon Dioxide 15 L Anion Gap 19 BUN 82 H Creatinine 6.66 H Est GFR ( Amer) 10 L Glucose 119 H Calcium 9.2 Phosphorus 6.5 H Magnesium 1.4 L 03/21/19 03/21/19 03/21/19 11:10 15:34 15:34 Troponin I Cancelled 0.035 Cancelled NT-Pro-B Natriuret Pep 1960 H 03/21/19 03/22/19 21:39 03:04 Troponin I 0.035 0.031 NT-Pro-B Natriuret Pep Impressions: Head CT 03/25/19 00:00 IMPRESSION: No acute intracranial abnormality. Mild chronic microvascular ischemic change with suspected remote lacunar infarct within the right lentiform nucleus. Underlying severe generalized atrophy. Complete opacification of the left sphenoid cellule with associated peripheral hyperostosis as well as remodeling of the left sphenoid sinus galdamez, suspicious for chronic sphenoid sinusitis or the presence of a mucocele. This appears unchanged from the previous exam dated 03/21/2019. TECHNICAL DOCUMENTATION: Quality ID # [id number]: Final reports with documentation of one or more dose reduction techniques (e.g., Automated exposure control, adjustment of the mA and/or kV according to patient size, use of iterative reconstruction technique) copyright 2010 [employer]- All Rights Reserved Renal Ultrasound 03/25/19 00:00 IMPRESSION: 1. Unremarkable renal ultrasound. No hydronephrosis. 2. Decompressed urinary bladder with a Covarrubias catheter. All labs, radiographs, diagnostic studies and EKGs were personally reviewed: Yes In addition, reports of radiographic and diagnostic studies were read: Yes Assessment and Plan - Diagnosis (1) Sepsis with encephalopathy and septic shock Qualifiers: Sepsis type: sepsis due to unspecified organism Qualified Code(s): A41.9 - Sepsis, unspecified organism; R65.21 - Severe sepsis with septic shock; G93.40 - Encephalopathy, unspecified Is this a current diagnosis for this admission?: Yes Plan: Resolved (2) Lactic acidosis Is this a current diagnosis for this admission?: Yes Plan: Resolved (3) Sepsis associated hypotension Is this a current diagnosis for this admission?: Yes Plan: resolved (4) Acute on chronic renal failure Qualifiers: Acute renal failure type: unspecified Chronic kidney disease stage: stage 5, not on chronic dialysis Qualified Code(s): N17.9 - Acute kidney failure, unspecified; N18.5 - Chronic kidney disease, stage 5 Is this a current diagnosis for this admission?: Yes Plan: Unchanged. Not a candidate for renal replacement therapy (5) UTI (urinary tract infection) Qualifiers: Urinary tract infection type: site unspecified Hematuria presence: with hematuria Qualified Code(s): N39.0 - Urinary tract infection, site not specified; R31.9 - Hematuria, unspecified Is this a current diagnosis for this admission?: Yes Plan: Present on admission. Stop antibiotics in 24 hours (6) Adrenal insufficiency Is this a current diagnosis for this admission?: Yes Plan: mild, low dose steroid therapy. Continue to wean (7) Acute urinary retention Is this a current diagnosis for this admission?: Yes Plan Summary: 03.26.19: Patient's overall status appears to be worsening. CT scan was done to rule out stroke secondary to the change in speech pattern. He also has a slight notable droop however we are unable to ascertain whether this is because of the absence of his teeth. It is difficult to get a full neuro exam from the right arm because of previous injury pattern which has caused restriction in movement. His cranial nerve exam is intact except for the slight slurring of speech. I am concerned that this is related to medication effect in addition to his BUN elevation. He appeared to have increased congestion yesterday and Lasix was given to improve this. IV fluids were discontinued. Test x-ray shows slight interstitial increase. He also has widening of his mediastinum which she has had for some time. In that dialysis is no longer a consideration, the downstream effect of this decision is ultimately hyperkalemia, respiratory failure, and potential heart failure. His CT scan is consistent with moderate encephalomalacia brain atrophy with resultant enlargement of his ventricles. There is no evidence to support hydrocephalus. He also appears to be having difficulty swallowing. This dysphasic response is in contradistinction from previous examination. 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 Did have a lengthy discussion with his daughter and attempted to reach out to the guardian of the patient. I concern is that an MRA and an MRI may prove that there has been a stroke in the hola however treatment would still be conservative and what we are providing for now. To risk sending him for this lying flat for a number of hours with potential for aspiration would not justified given the fact that it would not change the treatment paradigm. I have attempted to reach out to his guardian Mrs. Stanislav Sharpe. She is the legal guardian and became this over the last few years because of the patient's frequent alcohol use leading to significant complications both financially and personally for the patient. The patient's ex-, daughter and son still maintain contact and have been at his bedside visiting. They were made aware of the issues and are in agreement for no dialysis and for DNR/DNI status. This will need to be cleared and validated by the guardian and we are awaiting their phone call. Patient will be maintained in a ICU status for the time being. Is at risk for aspiration, respiratory distress, and neurogenic failure given the above. I have discontinued all mood altering medications and concern for her effect on his physical status given his renal failure. Patient's platelets have improved and we have held the heparin. Heparin antibody studies are still pending. Given his renal failure and thrombocytopenia the possibility of TTP or ITP would need to be considered. He does not have any petechiae or purpura for that consideration but will continue to monitor and follow his course and care. Has had tachycardia and off his beta-naye. Have reinstituted beta-naye therapy. 03.25.19: Patient's creatinine has not worsened. He endorsed to the renal service that he was slightly short of breath however he is not complaining of this to us. I spoke with the patient about the possible need of dialysis in the future. Though not necessary at this point inevitably it may become something for which he may need. In discussion regarding this the patient would not want to have dialysis. With the help of his ex- who is been at his bedside he again expressed that he would not want this. He is hard of hearing and we are hopeful that he completely understands this. This is a reasonable decision given his age his co-morbidities and his inability to care for himself coupled to his refusal for medications and therapy. In addition to his wishes to not proceed the renal service would not offer this as a possibility given the care home prognosis which would be poor and fraught with multiple complications. For now we will continue supportive care. Follow electrolytes. Keep Covarrubias catheter in place. Will attempt to have a family meeting regarding CODE STATUS however ultimately this decision would fall on the guardian Ms. Stanislav Sharpe. Her contact information: Cell phone [phone]; office phone: [phone]. 03.24.19:Patient's encephalopathy has improved as well his hypotension. We will continue supportive care. His renal failure appears to be a component of acute obstructive uropathy as well as dehydration. We have placed him on fluid replacement therapy. The nephrology service evaluated the patient. At this point he is not a candidate for renal replacement therapy for a number of reasons: 1. He appears dehydrated and ample time will need to be given to provide IV fluids. 2. Given his age and status with refusal of therapy he would not be a good candidate for psychosocial reasons, as far as long-term dialysis therapy. 3. His electrolyte and metabolic status is not significant I have asked for urine culture and repeat urine our urinalysis. His urinalysis on admission was positive and we need to determine if there is any bacterial invasion. Have started him on Rocephin. Patient has refused physical therapy and we have reordered. I spoken to his daughter and his family members about assisting with compliance. I have also discussed his case and care with his guardian, Mrs. Sharpe. In order for him to be fulfilled for DNR status we would need to assure a short and long-term prognosis. We will discuss further with patient and family. Continue supportive care. Follow his metabolic profile. Follow sodium. Reduce steroids today. Critical Time Critical Time (minutes): 45 - with end-of-life discussions Level of Care: ICU Anticipated discharge: Hospice Within: within 36 hours -: 1. The care of a critical patient is a dynamic process. This note is a rep resentative synopsis but static in nature. The timeframe for treatments given in order is not necessary the actual time these treatments may have been done. 2. This patient requires critical care secondary to ongoing requirements for therapy not offered or safe outside the critical care environment. Transfer to a lower level of care with altered life or limb morbidity and mortality. 3. Multidisciplinary rounds completed. 4. ABCDE bundle addressed. 5. MPOA: Stanislav Sharpe, state appointed guardian
[2019-03-26] MEDS: METOPROLOL TARTRATE 25 MG TABLET PO SCH ×2 (13:04→22:27)
[2019-03-27] MEDS ORDERED: METOPROLOL TARTRATE PF/INJ 5 MG/5 ML SDV IV ONE ×2 (02:35→03:10)
[2019-03-27 04:56] LABS: ABSOLUTE MONOCYTES (AUTO) 0.1 10^3/uL (0.1-1.4); ABSOLUTE NEUT (AUTO) 2.3 10^3/uL (1.7-8.2); BASOPHILS % (AUTO) 0.5 % (0-2); EOSINOPHILS % (AUTO) 0.2 % (0-6); HEMOGLOBIN 8.6 g/dL (13.5-17.0); LYMPHOCYTES % (AUTO) 28.1 % (13-45); MEAN CORPUSCULAR HEMOGLOBIN 32.2 pg (27.0-33.4); MEAN CORPUSCULAR HGB CONC 34.3 g/dL (32.0-36.0); MEAN CORPUSCULAR VOLUME 94 fl (80-97); MONOCYTES % (AUTO) 4.3 % (3-13); RED BLOOD COUNT 2.67 10^6/uL (4.35-5.55); RED CELL DISTRIBUTION WIDTH 15.2 % (11.5-14.0); SEGMENTED NEUTROPHILS % (AUTO) 66.9 % (42-78); TOTAL CELLS COUNTED % (AUTO) 100 %; WHITE BLOOD COUNT 3.4 10^3/uL (4.0-10.5)
[2019-03-27 05:06] LABS: ANION GAP 15 (5-19); BLOOD UREA NITROGEN 92 mg/dL (7-20); CALCIUM 9.5 mg/dL (8.4-10.2); CARBON DIOXIDE 17 mmol/L (22-30); CHLORIDE 114 mmol/L (98-107); GLUCOSE 103 mg/dL (75-110); PHOSPHORUS 6.3 mg/dL (2.5-4.5); POTASSIUM 3.8 mmol/L (3.6-5.0)
[2019-03-27 05:29] LABS: PLATELET COUNT 72 10^3/uL (150-450)
[2019-03-27] MEDS: THIAMINE HCL 100 MG TABLET PO SCH (05:53)
[2019-03-27] MEDS: LEVOTHYROXINE SODIUM 0.025 MG TABLET PO SCH (05:53)
[2019-03-27] MEDS ORDERED: THIAMINE HCL 100 MG TABLET PO SCH (07:00)
[2019-03-27] MEDS: METOPROLOL TARTRATE 25 MG TABLET PO SCH (10:31)
[2019-03-27] MEDS: HYDROCORTISONE SOD SUCCINATE INJ/PF 100 MG/2 ML SDV IV SCH (10:31)
[2019-03-27] MEDS: DOCUSATE SODIUM 100 MG CAPSULE PO SCH (10:35)
[2019-03-27] MEDS: FOLIC ACID 1 MG TABLET PO SCH (10:35)
[2019-03-27] MEDS: SODIUM BICARBONATE 650 MG TABLET PO SCH (10:35)
[2019-03-27 10:55] VITALS: BP 147/92
--- NOTE | 2019-03-27 12:29 | PDOC CRITICAL CARE PROG REPORT ---
General Date:: 03/27/19 ICU Day:: 5 Ventilator Day:: 0 Hospital Day:: 6 Events in the past 12 to 24 Hours:: 03.27.19: Patient had tachycardia during the night which responded to IV lopressor. Currently improved. Creatinine slightly worse. He has been refusing his oral medications. Nursing note slightly more lethargic. Patient is attempting to communicate with this author but does not want to participate in examination process. Any pain, headache, shortness of breath or chest pain. 03.26.19: Patient has increased heart rate and respiratory rate. Had CT of brain secondary to mental status changes. Discussion regarding dialysis occurred with both Nephrology and patient. No dialysis to be offered/accepted. 03.25.19: Patient has been domiciled in the ICU without any worsening of his neurological status. We appreciate the assistance of the nephrology team. No hemodynamic instability has occurred. Patient denies any pain or shortness of breath. 03.24.19:Patient's mental status continues to improve. He has been hemodynami mercedez stable. Sodium levels are higher today however this may be as a result of Solu-Cortef therapy. Notably his cortisol level was 18 at the time of his change in status. Review of systems relevant to events:: Had a lengthy discussion with the patient's daughter, and the patient's state guardian. Apparently the family was somewhat estranged from the patient for a number of years especially after the divorce. It is just been recently that the daughter has been reintroduced into the patient's life. The guardian is Mrs. Gavino Sharpe, from [employer], phone number is [phone]. The daughter states that the patient's auditory acuity is depressed. He refuses to wear his hearing aids. He often refuses his medications at the nursing facility for which he resides. The daughter states he was transferred there because he was unable to care for himself and was noncompliant with medications. He is at his baseline mental status according to daughter. His activities of daily living include ambulation and he can feed and wipe himself however needs help with bathing. He has restricted motion of the right shoulder for quite some time and it is difficult to move. No history of stroke. He has a long- standing history of alcohol use but none recently as far as anyone knows. He was noted to have blood in his Covarrubias originally but appears to be related to trauma. This has improved. He has refused physical therapy and occupational therapy here. Review of systems relevant to events:: Has had no arrhythmias. Covarrubias has been maintained to monitor accurate urine output. Although there has been urine output it has not been extensive. Review of systems relevant to events:: Respiratory status has not worsened. He does not have a cough. Speech evaluate the patient and he was not cooperative enough for them to evaluate. Neurologic status, as far as function, has not changed. He is slightly less cooperative than yesterday. Still has occasional slurred and garbled speech. Has not had any difficulty handling secretions. Reason for ICU Addmission:: Hypotension, Acute Kidney Injury, electrolyte abnormality. - Medications: Medications reviewed and adjusted accordingly: Yes Vasopressors:: None. Weaned to off. Sedation:: None. Physical Exam Vital Signs: Temp Pulse Resp BP Pulse Ox 98.1 F 111 H 19 156/93 H 98 03/27/19 03:56 03/27/19 01:45 03/27/19 06:05 03/27/19 06:05 03/27/19 06:05 Intake & Output 03/26/19 03/27/19 03/28/19 06:59 06:59 06:59 Intake Total 50 100 Output Total 1750 1445 Balance -1700 -1345 Weight 87 kg 86.8 kg Weight/Height Weight 86.8 kg Height 5 ft 6 in General appearance: PRESENT: no acute distress, disheveled, well-developed, well-nourished. ABSENT: cooperative Exam: Elderly nontoxic but ill 88-year-old white male no active distress he is awake oriented to person and place garbled and slurred speech. Head exam: PRESENT: atraumatic, normocephalic Eye exam: PRESENT: conjunctiva pink, EOMI, PERRLA. ABSENT: conjunctival injection, nystagmus, scleral icterus Ear exam: PRESENT: normal external ear exam Mouth exam: PRESENT: moist, neck supple, tongue midline Teeth exam: PRESENT: edentulous Neck exam: ABSENT: carotid bruit, lymphadenopathy, tenderness, thyromegaly, tracheal deviation Respiratory exam: PRESENT: clear to auscultation andrea, unlabored. ABSENT: rales, rhonchi, tachypnea, wheezes Cardiovascular exam: PRESENT: irregular rhythm, +S1, +S2, tachycardia Pulses: PRESENT: +1 pedal pulses bilateral GI/Abdominal exam: PRESENT: normal bowel sounds, soft. ABSENT: ascites, distended, firm, guarding, mass, organolmegaly, rebound, rigid, tenderness Rectal exam: PRESENT: deferred Gentrourinary exam: PRESENT: indwelling catheter Extremities exam: ABSENT: pedal edema Musculoskeletal exam: PRESENT: normal inspection. ABSENT: ambulatory, deformity, dislocation Neurological exam: PRESENT: awake, oriented to person, oriented to place, CN II- XII grossly intact, motor sensory deficit - Patient has poor bilateral spring tacker. Unable to move right arm secondary to anatomic restriction. Difficult to determine any deficit. He is uncooperative when asked to stick out tongue. Has slight left facial droop without dentures in place. Difficult to understand secondary to slurring of speech. Psychiatric exam: PRESENT: flat affect. ABSENT: agitated, anxious Focused psych exam: ABSENT: pressured speech, psychomotor agitation, rest lessness Skin exam: PRESENT: dry, intact, normal color, warm. ABSENT: cyanosis, mottled, rash Tubes/Lines: ABSENT: Endotracheal Tube, Chest Tube, Central Line, Arterial Catheter, Dialysis catheter - Covarrubias in place for palliative care, Peg Tube, Naso gastic Tube, Other Laboratory/Radiographs Laboratory Results: 03/27/19 04:23 03/27/19 04:23 03/27/19 03/27/19 04:23 04:23 WBC 3.4 L RBC 2.67 L Hgb 8.6 L Hct 25.0 L MCV 94 MCH 32.2 MCHC 34.3 RDW 15.2 H Plt Count 72 L Seg Neutrophils % 66.9 Sodium 145.9 H Potassium 3.8 Chloride 114 H Carbon Dioxide 17 L Anion Gap 15 BUN 92 H Creatinine 6.67 H Est GFR ( Amer) 10 L Glucose 103 Calcium 9.5 Phosphorus 6.3 H Magnesium 2.0 03/21/19 11:21 Blood Blood Culture - Final NO GROWTH IN 5 DAYS 03/21/19 11:10 Blood Blood Culture - Final NO GROWTH IN 5 DAYS 03/24/19 16:59 Catheterized Urine Urine Culture - Final NO GROWTH 2 DAYS 03/21/19 03/21/19 03/21/19 11:10 15:34 15:34 Troponin I Cancelled 0.035 Cancelled NT-Pro-B Natriuret Pep 1960 H 03/21/19 03/22/19 21:39 03:04 Troponin I 0.035 0.031 NT-Pro-B Natriuret Pep Impressions: Head CT 03/25/19 00:00 IMPRESSION: No acute intracranial abnormality. Mild chronic microvascular ischemic change with suspected remote lacunar infarct within the right lentiform nucleus. Underlying severe generalized atrophy. Complete opacification of the left sphenoid cellule with associated peripheral hyperostosis as well as remodeling of the left sphenoid sinus galdamez, suspicious for chronic sphenoid sinusitis or the presence of a mucocele. This appears unchanged from the previous exam dated 03/21/2019. TECHNICAL DOCUMENTATION: Quality ID # [id number]: Final reports with documentation of one or more dose reduction techniques (e.g., Automated exposure control, adjustment of the mA and/or kV according to patient size, use of iterative reconstruction technique) copyright 2011 [employer]- All Rights Reserved Renal Ultrasound 03/25/19 00:00 IMPRESSION: 1. Unremarkable renal ultrasound. No hydronephrosis. 2. Decompressed urinary bladder with a Covarrubias catheter. Chest X-Ray 03/26/19 06:00 IMPRESSION: Rotated AP view of the chest with low inspiratory lung volumes. The radiographic appearance of the chest is overall unchanged with bilateral pleural effusions and probable bibasilar atelectasis. As noted on the prior report, the increased density in the left retrocardiac space could represent a combination of a hiatal hernia, atelectasis and the dilated thoracic aorta. All labs, radiographs, diagnostic studies and EKGs were personally reviewed: Yes In addition, reports of radiographic and diagnostic studies were read: Yes Assessment and Plan - Diagnosis (1) Atrial fibrillation with rapid ventricular response Is this a current diagnosis for this admission?: Yes Plan: Resolved. Not a candidate for anticoagulation (2) Acute on chronic renal failure Qualifiers: Acute renal failure type: unspecified Chronic kidney disease stage: stage 5, not on chronic dialysis Qualified Code(s): N17.9 - Acute kidney failure, unspecified; N18.5 - Chronic kidney disease, stage 5 Is this a current diagnosis for this admission?: Yes Plan: Slightly increased. Phosphorus high. Have started Phosphorus lowering agent. Not a candidate for renal replacement therapy (3) Sepsis with encephalopathy and septic shock Qualifiers: Sepsis type: sepsis due to unspecified organism Qualified Code(s): A41.9 - Sepsis, unspecified organism; R65.21 - Severe sepsis with septic shock; G93.40 - Encephalopathy, unspecified Is this a current diagnosis for this admission?: Yes Plan: Resolved. No urine culture available. (4) Sepsis associated hypotension Is this a current diagnosis for this admission?: Yes Plan: resolved. Bp higher and meds have been started (5) Lactic acidosis Is this a current diagnosis for this admission?: Yes Plan: Resolved (6) UTI (urinary tract infection) Qualifiers: Urinary tract infection type: site unspecified Hematuria presence: with hematuria Qualified Code(s): N39.0 - Urinary tract infection, site not specified; R31.9 - Hematuria, unspecified Is this a current diagnosis for this admission?: Yes Plan: Present on admission. Antibiotics discontinued (7) Adrenal insufficiency Is this a current diagnosis for this admission?: Yes Plan: mild, low dose steroid therapy. Continuing to wean every 2 days (8) Acute urinary retention Is this a current diagnosis for this admission?: Yes (9) Episode of change in speech Is this a current diagnosis for this admission?: Yes Plan: May have pontine or lacunar stroke. Unsafe for MRI and any findings would not change treatment plans Plan Summary: 03.27.10: Continues to have unusual Garbled slurred speech. He has a slight drooping of his left face but with a smile appears to improve. I am concerned that there may be an underlying occult stroke however his constant movement precludes MRI. That being said even if and an MRI was obtained and there was a stroke found anatomically it would not change treatment plan. Family is aware and accepting of this process. The other possibility is related to his elevated BUN and uremic status. We received confirmation from both the family and the guardian, Stanislav Sharpe, and the state has approved a DNR/DNI status. They have also agreed to allow the patient to go back to [facility] where he will be placed in a palliative care mode. Should he worsen which is to be expected given his renal failure, he will be transition to hospice care. We will continue supportive care until that time. 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 He has been refusing some of his oral medications and a speech eval was ordered however patient would not cooperate with the practitioner. Adjust IV medications to control heart rate and transition to hospice care pending change in his clinical status. 03.26.19: Patient's overall status appears to be worsening. CT scan was done to rule out stroke secondary to the change in speech pattern. He also has a slight notable droop however we are unable to ascertain whether this is because of the absence of his teeth. It is difficult to get a full neuro exam from the right arm because of previous injury pattern which has caused restriction in movement. His cranial nerve exam is intact except for the slight slurring of speech. I am concerned that this is related to medication effect in addition to his BUN elevation. He appeared to have increased congestion yesterday and Lasix was given to improve this. IV fluids were discontinued. Test x-ray shows slight interstiti al increase. He also has widening of his mediastinum which she has had for some time. In that dialysis is no longer a consideration, the downstream effect of this decision is ultimately hyperkalemia, respiratory failure, and potential heart failure. His CT scan is consistent with moderate encephalomalacia brain atrophy with resultant enlargement of his ventricles. There is no evidence to support hydrocephalus. He also appears to be having difficulty swallowing. This dysphasic response is in contradistinction from previous examination. 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 Did have a lengthy discussion with his daughter and attempted to reach out to the guardian of the patient. I concern is that an MRA and an MRI may prove that there has been a stroke in the hola however treatment would still be conservative and what we are providing for now. To risk sending him for this lying flat for a number of hours with potential for aspiration would not justified given the fact that it would not change the treatment paradigm. I have attempted to reach out to his guardian Mrs. Stanislav Sharpe. She is the legal guardian and became this over the last few years because of the patient's frequent alcohol use leading to significant complications both financially and personally for the patient. The patient's ex-, daughter and son still maintain contact and have been at his bedside visiting. They were made aware of the issues and are in agreement for no dialysis and for DNR/DNI status. This will need to be cleared and validated by the guardian and we are awaiting their phone call. Patient will be maintained in a ICU status for the time being. Is at risk for aspiration, respiratory distress, and neurogenic failure given the above. I have discontinued all mood altering medications and concern for her effect on h is physical status given his renal failure. Patient's platelets have improved and we have held the heparin. Heparin antibody studies are still pending. Given his renal failure and thrombocytopenia the possibility of TTP or ITP would need to be considered. He does not have any petechiae or purpura for that consideration but will continue to monitor and follow his course and care. Has had tachycardia and off his beta-naye. Have reinstituted beta-naye therapy. 03.25.19: Patient's creatinine has not worsened. He endorsed to the renal service that he was slightly short of breath however he is not complaining of this to us. I spoke with the patient about the possible need of dialysis in the future. Though not necessary at this point inevitably it may become something for which he may need. In discussion regarding this the patient would not want to have dialysis. With the help of his ex- who is been at his bedside he again expressed that he would not want this. He is hard of hearing and we are hopeful that he completely understands this. This is a reasonable decision given his age his co-morbidities and his inability to care for himself coupled to his refusal for medications and therapy. In addition to his wishes to not proceed the renal s ervice would not offer this as a possibility given the supervisor long goods prognosis which would be poor and fraught with multiple complications. For now we will continue supportive care. Follow electrolytes. Keep Covarrubias catheter in place. Will attempt to have a family meeting regarding CODE STATUS however ultimately this decision would fall on the guardian Ms. Stanislav Sharpe. Her contact information: Cell phone [phone]; office phone: [phone]. 03.24.19:Patient's encephalopathy has improved as well his hypotension. We will continue supportive care. His renal failure appears to be a component of acute obstructive uropathy as well as dehydration. We have placed him on fluid replacement therapy. The nephrology service evaluated the patient. At this point he is not a candidate for renal replacement therapy for a number of reasons: 1. He appears dehydrated and ample time will need to be given to provide IV fluids. 2. Given his age and status with refusal of therapy he would not be a good candidate for psychosocial reasons, as far as long-term dialysis therapy. 3. His electrolyte and metabolic status is not significant I have asked for urine culture and repeat urine our urinalysis. His urinalysis on admission was positive and we need to determine if there is any bacterial invasion. Have started him on Rocephin. Patient has refused physical therapy and we have reordered. I spoken to his daughter and his family members about assisting with compliance. I have also discussed his case and care with his guardian, Mrs. Sharpe. In order for him to be fulfilled for DNR status we would need to assure a short and long-term prognosis. We will discuss further with patient and family. Continue supportive care. Follow his metabolic profile. Follow sodium. Reduce steroids today. Critical Time Critical Time (minutes): 40 - [id number] with end-of-life care discussion Level of Care: MEDICAL Anticipated discharge: Hospice Within: within 24 hours -: 1. The care of a critical patient is a dynamic process. This note is a rental sales representative synopsis but static in nature. The timeframe for treatments given in order is not necessary the actual time these treatments may have been done. 2. This patient requires critical care secondary to ongoing requirements for therapy not offered or safe outside the critical care environment. Transfer to a lower level of care with altered life or limb morbidity and mortality. 3. Multidisciplinary rounds completed. 4. ABCDE bundle addressed. 5. MPOA: Stanislav Sharpe with family agreement on care
--- NOTE | 2019-03-27 12:37 | PDOC TRANSFER SUMMARY ---
Impression - Admit/DC Date/PCP Admission Date/Primary Care Provider: 03/21/19 18:50 JUANITO CARDONA MD Discharge Date: 03/27/19 - Discharge Diagnosis (1) Acute on chronic renal failure Is this a current diagnosis for this admission?: Yes (2) Sepsis with encephalopathy and septic shock Is this a current diagnosis for this admission?: Yes (3) Sepsis associated hypotension Is this a current diagnosis for this admission?: Yes (4) Atrial fibrillation with rapid ventricular response Is this a current diagnosis for this admission?: Yes (5) Lactic acidosis Is this a current diagnosis for this admission?: Yes (6) UTI (urinary tract infection) Is this a current diagnosis for this admission?: Yes (7) Adrenal insufficiency Is this a current diagnosis for this admission?: Yes (8) Acute urinary retention Is this a current diagnosis for this admission?: Yes (9) Episode of change in speech Is this a current diagnosis for this admission?: Yes - Additional Information Resuscitation Status: Comfort Measures Only Discharge Diet: As Tolerated Discharge Activity: Bedrest Referrals: JUANITO CARDONA MD [Primary Care Provider] - Follow up as needed (Dr Martín echeverria will see this patient at '[facility]") Home Medications: Levothyroxine Sodium [Synthroid] 25 mcg PO Q6AM 06/03/15 Lisinopril 20 mg PO DAILY 06/03/15 Mirtazapine [Remeron] 15 mg PO HSP PRN 06/03/15 Risperidone 2 mg PO DAILY 06/03/15 Lorazepam [Ativan 1 mg Tablet] 0.5 mg PO BID 03/21/19 Metoprolol Succinate [Toprol Xl 25 mg Tab.sr] 25 mg PO QHS 03/21/19 History of Present Illiness History of Present Illness: ELAINE PAYNE is a 88 year old male presented with encephalopathy and urinary tract infection. He was also noted to have acute kidney injury that did not improve with treatment or placement of Covarrubias catheter. He had bladder outlet obstruction. He admitted to the telemetry floor his blood pressure decreased and he was sent to the ICU. Hospital Course Hospital Course: 03.27.19: Patient had tachycardia during the night which responded to IV lopressor. Currently improved. Creatinine slightly worse. He has been refusing his oral medications. Nursing note slightly more lethargic. Patient is attempting to communicate with this author but does not want to participate in examination process. Any pain, headache, shortness of breath or chest pain. Continues to have unusual Garbled slurred speech. He has a slight drooping of his left face but with a smile appears to improve. I am concerned that there may be an underlying occult stroke however his constant movement precludes MRI. That being said even if and an MRI was obtained and there was a stroke found anatomically it would not change treatment plan. Family is aware and accepting of this process. The other possibility is related to his elevated BUN and uremic status. We received confirmation from both the family and the guardian, Stanislav Sharpe, and the state has approved a DNR/DNI status. They have also agreed to allow the patient to go back to [facility] where he will be placed in a palliative care mode. Should he worsen which is to be expected given his renal failure, he will be transition to hospice care. We will continue supportive care until that time. 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 He has been refusing some of his oral medications and a speech eval was ordered however patient would not cooperate with the practitioner. Adjust IV medications to control heart rate and transition to hospice care pending change in his clinical status. 03.26.19: Patient has increased heart rate and respiratory rate. Had CT of brain secondary to mental status changes. Discussion regarding dialysis occurred with both Nephrology and patient. No dialysis to be offered/accepted. Patient's overall status appears to be worsening. CT scan was done to rule out stroke secondary to the change in speech pattern. He also has a slight notable droop however we are unable to ascertain whether this is because of the absence of his teeth. It is difficult to get a full neuro exam from the right arm because of previous injury pattern which has caused restriction in movement. His cranial nerve exam is intact except for the slight slurring of speech. I am concerned that this is related to medication effect in addition to his BUN elevation. He appeared to have increased congestion yesterday and Lasix was given to improve this. IV fluids were discontinued. Test x-ray shows slight interstitial increase. He also has widening of his mediastinum which she has had for some time. In that dialysis is no longer a consideration, the downstream effect of this decision is ultimately hyperkalemia, respiratory failure, and potential heart failure. His CT scan is consistent with moderate encephalomalacia brain atrophy with resultant enlargement of his ventricles. There is no evidence to support hydrocephalus. He also appears to be having difficulty swallowing. This dysphasic response is in contradistinction from previous examination. 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 Did have a lengthy discussion with his daughter and attempted to reach out to the guardian of the patient. I concern is that an MRA and an MRI may prove that there has been a stroke in the hola however treatment would still be conservative and what we are providing for now. To risk sending him for this lying flat for a number of hours with potential for aspiration would not justified given the fact that it would not change the treatment paradigm. I have attempted to reach out to his guardian Mrs. Stanislav Sharpe. She is the legal guardian and became this over the last few years because of the patient's frequent alcohol use leading to significant complications both financially and personally for the patient. The patient's ex-, daughter and son still maintain contact and have been at his bedside visiting. They were made aware of the issues and are in agreement for no dialysis and for DNR/DNI status. This will need to be cleared and validated by the guardian and we are awaiting their phone call. Patient will be maintained in a ICU status for the time being. Is at risk for aspiration, respiratory distress, and neurogenic failure given the above. I have discontinued all mood altering medications and concern for her effect on his physical status given his renal failure. Patient's platelets have improved and we have held the heparin. Heparin antibody studies are still pending. Given his renal failure and thrombocytopenia the possibility of TTP or ITP would need to be considered. He does not have any petechiae or purpura for that consideration but will continue to monitor and follow his course and care. Has had tachycardia and off his beta-naye. Have reinstituted beta-naye therapy. 03.25.19: Patient has been domiciled in the ICU without any worsening of his neurological status. We appreciate the assistance of the nephrology team. No hemodynamic instability has occurred. Patient denies any pain or shortness of breath. Patient's creatinine has not worsened. He endorsed to the renal service that he was slightly short of breath however he is not complaining of this to us. I spoke with the patient about the possible need of dialysis in the future. Though not necessary at this point inevitably it may become something for which he may need. In discussion regarding this the patient would not want to have dialysis. With the help of his ex- who is been at his bedside he again expressed that he would not want this. He is hard of hearing and we are hopeful that he completely understands this. This is a reasonable decision given his age his co-morbidities and his inability to care for himself coupled to his refusal for medications and therapy. 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 For now we will continue supportive care. Follow electrolytes. Keep Covarrubias catheter in place. Will attempt to have a family meeting regarding CODE STATUS however ultimately this decision would fall on the guardian Ms. Stanislav Sharpe. Her contact information: Cell phone [phone]; office phone: [phone]. 03.24.19:Patient's encephalopathy has improved as well his hypotension. We will continue supportive care. His renal failure appears to be a component of acute obstructive uropathy as well as dehydration. We have placed him on fluid replacement therapy. The nephrology service evaluated the patient. At this point he is not a candidate for renal replacement therapy for a number of reasons: 1. He appears dehydrated and ample time will need to be given to provide IV fluids. 2. Given his age and status with refusal of therapy he would not be a good candidate for psychosocial reasons, as far as long-term dialysis therapy. 3. His electrolyte and metabolic status is not significant I have asked for urine culture and repeat urine our urinalysis. His urinalysis on admission was positive and we need to determine if there is any bacterial invasion. Have started him on Rocephin. Patient has refused physical therapy and we have reordered. I spoken to his daughter and his family members about assisting with compliance. I have also discussed his case and care with his guardian, Mrs. Sharpe. In order for him to be fulfilled for DNR status we would need to assure a short and long-term prognosis. We will discuss further with patient and family. Continue supportive care. Follow his metabolic profile. Follow sodium. Reduce steroids today. 03.24.19:Patient's mental status continues to improve. He has been hemodynamically stable. Sodium levels are higher today however this may be as a result of Solu-Cortef therapy. Notably his cortisol level was 18 at the time of his change in status. Had a lengthy discussion with the patient's daughter, and the patient's state guardian. Apparently the family was somewhat estranged from the patient for a number of years especially after the divorce. It is just been recently that the daughter has been reintroduced into the patient's life. The guardian is Mrs. Gavino Sharpe, from [employer], phone number is [phone]. The daughter states that the patient's auditory acuity is depressed. He refuses to wear his hearing aids. He often refuses his medications at the nursing facility for which he resides. The daughter states he was transferred there because he was unable to care for himself and was noncompliant with medications. He is at his baseline mental status according to daughter. His activities of daily living include ambulation and he can feed and wipe himself however needs help with bathing. He has restricted motion of the right shoulder for quite some time and it is difficult to move. No history of stroke. He has a long- standing history of alcohol use but none recently as far as anyone knows. He was noted to have blood in his Covarrubias originally but appears to be related to trauma. This has improved. He has refused physical therapy and occupational therapy here. Physical Exam Vital Signs: Temp Pulse Resp BP Pulse Ox 98.1 F 98 17 147/92 H 94 03/27/19 03:56 03/27/19 10:00 03/27/19 10:27 03/27/19 10:27 03/27/19 10:27 Intake & Output 03/26/19 03/27/19 03/28/19 06:59 06:59 06:59 Intake Total 50 100 Output Total 1750 1445 Balance -1700 -1345 Weight 87 kg 86.8 kg Exam: See progress notes from today. Results Laboratory Results: WBC 3.4 10^3/uL (4.0-10.5) L 03/27/19 04:23 RBC 2.67 10^6/uL (4.35-5.55) L 03/27/19 04:23 Hgb 8.6 g/dL (13.5-17.0) L 03/27/19 04:23 Hct 25.0 % (37.9-51.0) L 03/27/19 04:23 MCV 94 fl (80-97) 03/27/19 04:23 MCH 32.2 pg (27.0-33.4) 03/27/19 04:23 MCHC 34.3 g/dL (32.0-36.0) 03/27/19 04:23 RDW 15.2 % (11.5-14.0) H 03/27/19 04:23 Plt Count 72 10^3/uL (150-450) L 03/27/19 04:23 Lymph % (Auto) 28.1 % (13-45) 03/27/19 04:23 [place] % (Auto) 4.3 % (3-13) 03/27/19 04:23 Eos % (Auto) 0.2 % (0-6) 03/27/19 04:23 Baso % (Auto) 0.5 % (0-2) 03/27/19 04:23 Absolute Neuts (auto) 2.3 10^3/uL (1.7-8.2) 03/27/19 04:23 Absolute Lymphs (auto) 1.0 10^3/uL (0.5-4.7) 03/27/19 04:23 Absolute Monos (auto) 0.1 10^3/uL (0.1-1.4) 03/27/19 04:23 Absolute Eos (auto) 0.0 10^3/uL (0.0-0.6) 03/27/19 04:23 Absolute Basos (auto) 0.0 10^3/uL (0.0-0.2) 03/27/19 04:23 Seg Neutrophils % 66.9 % (42-78) 03/27/19 04:23 Carbonic Acid 0.84 mmol/L (1.05-1.35) L 03/24/19 20:44 HCO3/H2CO3 Ratio 18:1 03/24/19 20:44 ABG pH 7.36 (7.35-7.45) 03/24/19 20:44 ABG pCO2 27.9 mmHg (35-45) L 03/24/19 20:44 ABG pO2 101.2 mmHg (80-100) H 03/24/19 20:44 ABG HCO3 15.2 mmol/L (20-24) L 03/24/19 20:44 ABG Total CO2 16.1 mmol/L (23-27) L 03/24/19 20:44 ABG O2 Saturation 97.5 % (94-98) 03/24/19 20:44 ABG Base Excess -9.2 mmol/L 03/24/19 20:44 FiO2 2 03/24/19 20:44 Sodium 145.9 mmol/L (137-145) H 03/27/19 04:23 Potassium 3.8 mmol/L (3.6-5.0) 03/27/19 04:23 Chloride 114 mmol/L (98-107) H 03/27/19 04:23 Carbon Dioxide 17 mmol/L (22-30) L 03/27/19 04:23 Anion Gap 15 (5-19) 03/27/19 04:23 BUN 92 mg/dL (7-20) H 03/27/19 04:23 Creatinine 6.67 mg/dL (0.52-1.25) H 03/27/19 04:23 Est GFR ( Amer) 10 (>60) L 03/27/19 04:23 Est GFR (Non-Af Amer) Cancelled 03/21/19 12:09 Est GFR (MDRD) Non-Af 8 (>60) L 03/27/19 04:23 Glucose 103 mg/dL (75-110) 03/27/19 04:23 Lactic Acid 0.8 mmol/L (0.7-2.1) 03/25/19 04:57 Calcium 9.5 mg/dL (8.4-10.2) 03/27/19 04:23 Phosphorus 6.3 mg/dL (2.5-4.5) H 03/27/19 04:23 Magnesium 2.0 mg/dL (1.6-2.3) 03/27/19 04:23 Total Bilirubin 0.5 mg/dL (0.2-1.3) 03/22/19 03:04 Direct Bilirubin 0.3 mg/dL (0.0-0.4) 03/22/19 03:04 Neonat Total Bilirubin Not Reportable 03/22/19 03:04 Neonat Direct Bilirubin Not Reportable 03/22/19 03:04 Neonat Indirect Bili Not Reportable 03/22/19 03:04 AST 18 U/L (17-59) 03/22/19 03:04 ALT 9 U/L (<50) 03/22/19 03:04 Alkaline Phosphatase 54 U/L (38-126) 03/22/19 03:04 Ammonia 28.6 umol/L (9-33) 03/25/19 04:57 Troponin I 0.031 ng/mL 03/22/19 03:04 NT-Pro-B Natriuret Pep 1960 pg/mL (<450) H 03/21/19 15:34 Total Protein 8.1 g/dL (6.3-8.2) 03/22/19 03:04 Albumin 3.5 g/dL (3.5-5.0) 03/22/19 05:34 EGFR Cancelled 03/21/19 12:09 TSH 1.15 uIU/mL (0.47-4.68) 03/22/19 03:04 Random Cortisol 18.30 ug/dL (None Established) 03/22/19 05:34 Urine Color YELLOW 03/22/19 18:15 Urine Appearance CLOUDY 03/22/19 18:15 Urine pH 5.0 (5.0-9.0) 03/22/19 18:15 Ur Specific [place] 1.011 03/22/19 18:15 Urine Protein NEGATIVE mg/dL (NEGATIVE) 03/22/19 18:15 Urine Glucose (UA) 50 mg/dL (NEGATIVE) H 03/22/19 18:15 Urine Ketones NEGATIVE mg/dL (NEGATIVE) 03/22/19 18:15 Urine Blood LARGE (NEGATIVE) H 03/22/19 18:15 Urine Nitrite NEGATIVE (NEGATIVE) 03/22/19 18:15 Urine Bilirubin NEGATIVE (NEGATIVE) 03/22/19 18:15 Urine Urobilinogen NEGATIVE mg/dL (<2.0) 03/22/19 18:15 Ur Leukocyte Esterase SMALL (NEGATIVE) H 03/22/19 18:15 Urine WBC (Auto) 14 /HPF 03/22/19 18:15 Urine RBC (Auto) 22 /HPF 03/22/19 18:15 Urine Bacteria (Auto) TRACE /HPF 03/22/19 18:15 Squamous Epi Cells Auto 1 /HPF 03/22/19 18:15 Amorphous Sediment Auto TRACE /HPF 03/22/19 18:15 Urine Mucus (Auto) RARE /LPF 03/22/19 18:15 Urine Ascorbic Acid NEGATIVE (NEGATIVE) 03/22/19 18:15 Heparin-induced Plt Ab 0.159 OD (0.000-0.40) 03/25/19 12:57 03/21/19 03/21/19 03/21/19 11:10 15:34 15:34 Troponin I Cancelled 0.035 Cancelled NT-Pro-B Natriuret Pep 1960 H 03/21/19 03/22/19 21:39 03:04 Troponin I 0.035 0.031 NT-Pro-B Natriuret Pep Impressions: Chest X-Ray 03/21/19 11:02 IMPRESSION: Low inspiratory lung volumes, cardiomegaly and trace bilateral pleural effusions. As described above, the increased density in the left retrocardiac space could represent a combination of the the hiatal hernia, atelectasis in the dilated thoracic aorta (refer to the CT from 04/20/2014, however a superimposed infection should be excluded based on clinical findings. Head CT 03/21/19 11:02 IMPRESSION: 1. Involutional changes with mild chronic microvascular ischemia. 2. Masslike opacification of the left sphenoid sinus. Possible mucocele. EVIDENCE OF ACUTE STROKE: NO. Head CT 03/25/19 00:00 IMPRESSION: No acute intracranial abnormality. Mild chronic microvascular ischemic change with suspected remote lacunar infarct within the right lentiform nucleus. Underlying severe generalized atrophy. Complete opacification of the left sphenoid cellule with associated peripheral hyperostosis as well as remodeling of the left sphenoid sinus galdamez, suspicious for chronic sphenoid sinusitis or the presence of a mucocele. This appears unchanged from the previous exam dated 03/21/2019. TECHNICAL DOCUMENTATION: Quality ID # [id number]: Final reports with documentation of one or more dose reduction techniques (e.g., Automated exposure control, adjustment of the mA and/or kV according to patient size, use of iterative reconstruction technique) copyright 2010 [employer]- All Rights Reserved Renal Ultrasound 03/25/19 00:00 IMPRESSION: 1. Unremarkable renal ultrasound. No hydronephrosis. 2. Decompressed urinary bladder with a Covarrubias catheter. Chest X-Ray 03/26/19 06:00 IMPRESSION: Rotated AP view of the chest with low inspiratory lung volumes. The radiographic appearance of the chest is overall unchanged with bilateral pleural effusions and probable bibasilar atelectasis. As noted on the prior report, the increased density in the left retrocardiac space could represent a c ombination of a hiatal hernia, atelectasis and the dilated thoracic aorta. Plan Plan of Treatment: Transfer to [facility]. Under palliative care with eventual need for hospice Time Spent: Greater than 30 Minutes Stroke Is this a Stroke Patient?: Yes Stroke Pt being discharged on Anti-thrombolytic therapy?: No Reason(s) for not prescribing Anti-thrombolytic therapy:: Comfort Measure, Hospice Care Stroke Pt being discharged on Anti-coagulation therapy?: No Reason(s) for not prescribing Anti-coagulation therapy:: Comfort Measure, Hospice Care Stroke Pt being discharged on Statins?: No Reason(s) for not prescribing Statins therapy:: Comfort Measure, Hospice Care - Patient also refusing oral medications Acute Heart Failure - Is this a Heart Failure Patient?: No
[2019-03-27] MEDS: IPRATROPIUM/ALBUTEROL 0.5-2.5 MG/3 ML AMPUL NEB PRN (13:12)
== END 2019-03-27 16:10 | DRG 871 ==
LOC: ER 10:49 → EH 18:50 → 3W 19:39 → ICU 03-22 05:08
PROVIDERS: ADMIT Anesthesiology; ATTEND Anesthesiology
DX: A41.9 Sepsis, unspecified organism (principal); R65.21 Severe sepsis with septic shock; G93.41 Metabolic encephalopathy; N17.9 Acute kidney failure, unspecified; N39.0 Urinary tract infection, site not specified; E87.0 Hyperosmolality and hypernatremia; I12.0 Hypertensive chronic kidney disease with stage 5 chronic kidney disease or end stage renal disease; N18.5 Chronic kidney disease, stage 5; E86.0 Dehydration; I25.2 Old myocardial infarction; Z79.899 Other long term (current) drug therapy; F31.9 Bipolar disorder, unspecified; E87.5 Hyperkalemia; Z66 Do not resuscitate; G30.1 Alzheimer's disease with late onset; F02.80 Dementia in other diseases classified elsewhere, unspecified severity, without behavioral disturbance, psychotic disturbance, mood disturbance, and anxiety; I95.89 Other hypotension; R06.89 Other abnormalities of breathing; N13.9 Obstructive and reflux uropathy, unspecified; D64.9 Anemia, unspecified; E83.39 Other disorders of phosphorus metabolism; I48.0 Paroxysmal atrial fibrillation; R47.81 Slurred speech; R29.810 Facial weakness; H91.90 Unspecified hearing loss, unspecified ear; R00.0 Tachycardia, unspecified; Z88.8 Allergy status to other drugs, medicaments and biological substances
CPT/HCPCS: 36415; 70450; 71045; 76775; 80048; 80053; 81001; 82040; 82140; 82533; 82803; 83605; 83735; 83880; 84100; 84443; 84484; 85025; 85027; 86022; 87040; 87086; 93005; 93010; 94640; 96361; 96365; 96367; 99231; 99232; 99233; 99285; J0696; J1265; J1644; J1720; J1940; J2543; J3370; J3411; J3475; J3490; J7030; J7050; J7060; J7620; P9047